=== PATIENT | female | born 1985 | race Caucasian/White ===

== ENCOUNTER → 2018-01-18 | Outpatient (CLI) | payer BC ==
[2018-01-18 12:23] LABS: Basophils % (A) 0 %; Eosinophils # (A) 0.2 k/uL (0-0.7); Eosinophils % (A) 2 %; Lymphocytes # (A) 2.8 k/uL (1.0-4.8); Lymphocytes % (A) 33 %; MCH 28.3 pg (25.0-35.0); MCHC 33.2 g/dL (31.0-37.0); MCV 85.3 fL (80.0-100.0); Mean Platelet Volume 7.5; Monocytes # (A) 0.4 k/uL (0-1.0); Monocytes % (A) 4 %; Neutrophils % (A) 58 %; Platelet Count 261 k/uL (150-450); RBC 4.57 m/uL (3.80-5.40); RDW 13.2 % (11.5-15.5); WBC 8.5 k/uL (3.8-10.6)
== END | disposition home or self-care (01) ==
LOC: LABPAT 11:40
PROVIDERS: ATTEND Obstetrics & Gynecology
DX: Z01.812 Encounter for preprocedural laboratory examination (principal)
CPT/HCPCS: 36415; 85025

== ENCOUNTER → 2018-01-22 | Day surgery (SDC) | payer BC ==
[2018-01-11 15:00] VITALS: BMI 50.3
--- NOTE | 2018-01-21 20:16 | P.HPOB ---
History of Present Illness H&P Date: 01/21/18 Chief Complaint: Menorrhagia with regular cycles This is a 32-year-old female 2 para 2 who presents for dilation and curettage with hysteroscopy and NovaSure endometrial ablation secondary to menorrhagia with regular cycle. She has tried control pills for almost a year and still has heavy menses and significant cramping. Her menses are occurring every 28 days and lasting 5-7 days with lots of clots and cramping. She did have a pelvic ultrasound a couple years ago that showed uterus measuring 9.2 x 3.5 x 4.2 cm with an endometrial stripe thickness of 6 mm. Neither ovary was visualized but no significant masses were visualized. She would like definitive surgical treatment to control her bleeding and she has had a previous tubal ligation. Obstetrical history: . History of 2 deliveries. Gynecologic history: No history of sexual transmitted diseases. She has had a tubal ligation. Social history: She is . Review of Systems Constitutional: Denies chills, Denies fever Eyes: denies blurred vision, denies pain Ears, nose, mouth and throat: Denies headache, Denies sore throat Cardiovascular: Denies chest pain, Denies shortness of breath Respiratory: Denies cough Gastrointestinal: Denies abdominal pain, Denies diarrhea, Denies nausea, Denies vomiting Genitourinary: Reports dysmenorrhea, Reports menorrhagia Menstruation: Reports period heavy Musculoskeletal: Reports low back pain, Reports myalgias Integumentary: Denies pruritus, Denies rash Neurological: Denies numbness, Denies weakness Psychiatric: Reports anxiety, Reports depression, Reports difficulty concentrating Endocrine: Denies fatigue, Denies weight change Past Medical History Past Medical History: No Reported History Additional Past Medical History / Comment(s): experiencing period pain History of Any Multi-Drug Resistant Organisms: None Reported Past Surgical History: Adenoidectomy, Section (Times 2), Cholecystectomy, Tonsillectomy, Tubal Ligation Additional Past Surgical History / Comment(s): wisdom teeth Past Anesthesia/Blood Transfusion Reactions: Postoperative Nausea & Vomiting ( PONV) Past Psychological History: Anxiety, Depression Smoking Status: Former smoker Past Alcohol Use History: Rare Past Drug Use History: None Reported - Past Family History Mother Family Medical History: CVA/TIA, Hyperlipidemia, Hypertension Medications and Allergies Home Medications Medication Instructions Recorded Confirmed Type No Known Home Medications 01/11/18 01/11/18 History Allergies Allergy/AdvReac Type Severity Reaction Status Date / Time No Known Allergies Allergy Verified 01/11/18 14:52 Exam Osteopathic Statement: *. No significant issues noted on an osteopathic structural exam other than those noted in the History and Physical/Consult. HEENT: Within normal limits Heart: Regular rate and rhythm Lungs: Clear to auscultation bilaterally Abdomen: Soft, nontender Pelvic exam: Uterus is small, anteverted, with no adnexal masses or tenderness noted. Extremities: Negative Homans Assessment and Plan (1) Menorrhagia with regular cycle Status: Acute Code(s): N92.0 - EXCESSIVE AND FREQUENT MENSTRUATION WITH REGULAR CYCLE SNOMED Code(s): 349424223 Plan: Proceed with dilation and curettage with hysteroscopy and NovaSure endometrial ablation. I have discussed the risks, benefits, and alternative therapies for the above- mentioned procedure and for both sedation/anesthesia as well as necessary blood products administration, if indicated, as they pertain to this patient. The patient has indicated her understanding and acceptance of the risks and procedures discussed.
[~2018-01-22] MED LIST: ALBUTEROL INHALER 60 PUFF/8 GM INHALER INHALATION ONE; DEXAMETHASONE SOD PHOSPHATE 10 MG/ML 1 ML VIAL IV ONE; KETOROLAC 30 MG/ML 1 ML VIAL ONE; LACTATED RINGERS 1,000 ML IV SCH; LIDOCAINE 1% 20 ML VIAL (10MG/ML) FOR IV START INTRADERMA PRN; LIDOCAINE 1% INJ 10MG/ML (20 ML MDV) ONE; MIDAZOLAM 2 MG/2 ML VIAL IV PRN; ONDANSETRON 4 MG/2 ML VIAL IVP ONE; PROPOFOL 10 MG/ML 20 ML VIAL IV ONE; Pre Op ABX Message 1 EACH MISC MISCELLANE ONE; SUCCINYLCHOLINE CHLORIDE VIAL 200 MG/10 ML VIAL IV ONE; fentaNYL (PF) 50 MCG/ML 2 ML AMP ONE
--- NOTE | 2018-01-22 08:00 | P.OP ---
Date of Procedure: 01/22/18 Preoperative Diagnosis: Menorrhagia with regular cycle Postoperative Diagnosis: Same Procedure(s) Performed: Dilation and curettage with hysteroscopy and NovaSure endometrial ablation Anesthesia: CATRACHITA Surgeon: Winnie Martínez Estimated Blood Loss (ml): 5 Pathology: other (Endometrial curettings) Condition: stable Disposition: same day Indications for Procedure: This is a 32-year-old female 2 para 2 who presents for dilation and curettage with hysteroscopy and NovaSure endometrial ablation secondary to menorrhagia with regular cycle. She has tried control pills for almost a year and still has heavy menses and significant cramping. Her menses are occurring every 28 days and lasting 5-7 days with lots of clots and cramping. She did have a pelvic ultrasound a couple years ago that showed uterus measuring 9.2 x 3.5 x 4.2 cm with an endometrial stripe thickness of 6 mm. Neither ovary was visualized but no significant masses were visualized. She would like definitive surgical treatment to control her bleeding and she has had a previous tubal ligation. Operative Findings: Uterus is mid position, with no adnexal masses palpated. Cervix is sounded to 4 cm and uterus is sounded to 11 cm. Upon hysteroscopy, both tubal ostia are visualized and a relatively smooth endometrial contour is noted. No specific polyps or fibroids were visualized. A minimal amount of endometrial curettings are obtained. Description of Procedure: The patient is taken to the operating room. She is placed in the dorsal lithotomy position after general anesthesia was given. She is prepped and draped in the normal sterile fashion. Bladder is drained with a catheter and then removed. Pelvic exam is performed under anesthesia. Uterus is found to be mid position with no adnexal masses. She is placed in slight Trendelenburg position. A right angle retractor is used to visualize the cervix. The anterior lip of the cervix is grasped with a single-tooth tenaculum. Cervix is sounded to 4 cm. Uterus is sounded to 11 cm. Cervix is gently dilated with Rothman dilators until a hysteroscope could be passed. Hysteroscopy is performed using normal saline. The above noted findings are noted. Next a polyp forceps is introduced. A moderate amount of tissue was obtained. Next medium-sized size sharp curette was placed. A minimal amount of endometrial curettings were obtained. Next NovaSure array was inserted into the endometrial cavity. Length was set at 6.5 cm and width was determined to be 4.1 cm. Next cavity assessment was completed and passed on the first try. Next NovaSure array was fired at 147 W for 56 seconds. Next the array was removed, inspected and then discarded. Next the hysteroscope was reinserted. Uniform charring was noted. Pictures were taken. Hysteroscope was removed. Single-tooth tenaculum was removed from the anterior lip of the cervix. Minimal bleeding was noted. All other instruments removed from the vagina. Sponge counts were correct. Patient is taken to recovery room in stable condition.
[2018-01-22 08:18] VITALS: TEMP 97.4
[2018-01-22 08:19] VITALS: RESP 16
[2018-01-22] MEDS: fentaNYL (PF) 50 MCG/ML 2 ML AMP IV PRN ×2 (08:37→08:45)
[2018-01-22 09:13] VITALS: BP 103/77; PULSE 70
== END | disposition home or self-care (01) ==
LOC: OR 06:06
PROVIDERS: ATTEND Obstetrics & Gynecology
DX: N92.0 Excessive and frequent menstruation with regular cycle (principal); F41.9 Anxiety disorder, unspecified; F32.9 Major depressive disorder, single episode, unspecified; E66.9 Obesity, unspecified; Z68.43 Body mass index [BMI] 50.0-59.9, adult; K21.9 Gastro-esophageal reflux disease without esophagitis; Z90.49 Acquired absence of other specified parts of digestive tract; Z98.51 Tubal ligation status; Z87.891 Personal history of nicotine dependence
CPT/HCPCS: 81025; 58563; J0330; J1100; J2405; J2001; J3010; J1885; J2704; 88305

== ENCOUNTER 2018-01-24 20:11 | Emergency (ER) | payer BC ==
[2018-01-24 20:29] VITALS: BP 145/90; PULSE 78; RESP 18; TEMP 98.5
[2018-01-24] MEDS ORDERED: MUPIROCIN 2% OINT 22 GM TUBE TOPICAL STA (20:52)
--- NOTE | 2018-01-24 21:00 | ED ---
Skin/Abscess/FB HPI - General Chief complaint: Skin/Abscess/Foreign Body Stated complaint: poss staph infection Time Seen by Provider: 01/24/18 20:45 Source: patient, RN notes reviewed Mode of arrival: ambulatory Limitations: no limitations - History of Present Illness Initial comments: This is a 32-year-old female who presents to the emergency department with chief complaint of possible staph infection. Patient states that she had a uterine ablation performed by Dr. Martínez on Sunday. She states that later that evening she developed some pain so applied a heating pad. She states that when she removed a heating pad she noticed a large blister and area of redness. Patient states that the wound has grown in size and is concerned for a staph infection. She denies fevers or chills. Denies history of MRSA. Denies chest pain or shortness of breath, abdominal pain, nausea or vomiting. Patient states that she has had multiple C-sections so has decreased sensation in the area due to built up scar tissue. She denies pain. - Related Data Home Medications Medication Instructions Recorded Confirmed No Known Home Medications 01/11/18 01/22/18 Allergies Allergy/AdvReac Type Severity Reaction Status Date / Time No Known Allergies Allergy Verified 01/24/18 20:29 Review of Systems ROS Statement: Those systems with pertinent positive or pertinent negative responses have been documented in the HPI. ROS Other: All systems not noted in ROS Statement are negative. Past Medical History Additional Past Medical History / Comment(s): experiencing period pain History of Any Multi-Drug Resistant Organisms: None Reported Past Surgical History: Appendectomy, Section, Cholecystectomy, Tonsillectomy, Uterine Ablation Additional Past Surgical History / Comment(s): wisdom teeth Past Anesthesia/Blood Transfusion Reactions: Postoperative Nausea & Vomiting ( PONV) Past Psychological History: Anxiety, Depression Smoking Status: Former smoker Past Alcohol Use History: Rare Past Drug Use History: None Reported - Past Family History Mother Family Medical History: CVA/TIA, Hyperlipidemia, Hypertension General Exam - General Exam Comments Initial Comments: General: Awake and alert, well-developed; in no apparent distress. HEENT: Head atraumatic, normocephalic. Pupils are equal, round and reactive to light. Extraocular movements intact. Oropharynx moist without erythema or exudate. Neck: Supple. Normal ROM. Cardiovascular: Regular rate and rhythm. No murmurs, rubs or gallops. Chest symmetrical. Respiratory: Lungs clear to auscultation bilaterally. No wheezes, rales or rhonchi. Normal respiratory effort with no use of accessory muscles. Abdomen: Soft, non-tender, non-distended. No rigidity, rebound or guarding. Musculoskeletal: Normal ROM, no tenderness bilateral upper and lower extremities. Ambulating normally. Skin: Mid lower abdomen/pannus circular healing burn with no surrounding erythema, swelling or tenderness. No blisters noted. Neurological: Alert and oriented x3. CN II-XII grossly intact. Speech is fluent and answers are appropriate. No focal neuro deficits. Psychiatric: Normal mood and affect. No overt signs of depression or anxiety noted. Limitations: no limitations Course Vital Signs 01/24/18 20:27 Temperature 98.5 F Pulse Rate 78 Respiratory 18 Rate Blood Pressure 145/90 O2 Sat by Pulse 99 Oximetry Medical Decision Making - Medical Decision Making This is a 32-year-old female who presents to the emergency department with chief complaint of possible staph infection. Patient reports using a heating pad to her lower abdomen on Sunday and sustaining a burn. Patient states that a blister did form but that it has since sloughed off. On physical examination , there is a well-healing large circular burn fede to the mid lower abdomen/ pannus region. No tenderness on palpation. No surrounding erythema or swelling. This does not appear infected, however patient will be provided with mupirocin ointment to be applied twice daily if needed. I educated patient that a staph infection will be tender, erythematous and may have a yellow crusting. Recommended following up with her primary care provider, specifically if wound does not appear to be healing. Patient's vital signs are stable and she is in no acute distress. She will be discharged home at this time. All questions were answered. Disposition Clinical Impression: Superficial burn of abdominal wall Disposition: HOME SELF-CARE Condition: Good Instructions: Superficial Burn (ED) Additional Instructions: Please follow up with primary care provider within 1-2 days. Return to emergency department if symptoms should worsen or any concerns arise. Is patient prescribed a controlled substance at d/c from ED?: No Referrals: None,Stated [Primary Care Provider] - 1-2 days Time of Disposition: 20:59
== END 2018-01-24 21:23 | disposition home or self-care (01) ==
LOC: EC 20:11
DX: T21.12XA Burn of first degree of abdominal wall, initial encounter (principal); Z87.891 Personal history of nicotine dependence; Z98.890 Other specified postprocedural states; X19.XXXA Contact with other heat and hot substances, initial encounter
CPT/HCPCS: 16000; 99283

== ENCOUNTER → 2020-07-29 | Outpatient (CLI) | payer OTHER, BC ==
--- NOTE | 2020-07-29 12:21 | US ---
EXAMINATION TYPE: US pelvic complete DATE OF EXAM: 07/29/2020 COMPARISON: US 2016 CLINICAL HISTORY: R10.2 Pelvic pain. Intermittent right pelvic pain and spotting x 6 months, 2, para 2, history of 2 c-sections, tubal ligation, uterine ablation(2018) and right ovarian cyst rem abel(2011) TECHNIQUE: . Transabdominal sonographic images of the pelvis were acquired. Transvaginal sonographi c images were medically necessary to better assess the following anatomy: ovaries, endometrium Date of LMP: 2018 EXAM MEASUREMENTS: Uterus: 10.6 x 4.2 x 4.1 cm Endometrial Stripe: cm Right Ovary: not seen Left Ovary: not seen Difficult and limited study due to morbidly obese patient 1. Uterus: anteverted, heterogeneous, nabothian cyst seen 2. Endometrium: fluid in endocervical canal, 1.3cm anechoic area appears within fundal portion of en do 3. Right Ovary: not seen 4. Left Ovary: not seen 5. Bilateral Adnexa: wnl 6. Posterior cul-de-sac: wnl 12.4 x 9.6 x 12.7cm hypoechoic complex mass midline pelvis superior to bladder and uterus, only see n transabdominally IMPRESSION: Nonspecific mass. CT is recommended for further evaluation.
== END | disposition home or self-care (01) ==
LOC: RADUSWWP 10:23
PROVIDERS: ATTEND Obstetrics & Gynecology
DX: R10.2 Pelvic and perineal pain (principal)
CPT/HCPCS: 76830; 76856

== ENCOUNTER → 2020-08-03 | Outpatient (CLI) | payer OTHER, BC ==
--- NOTE | 2020-08-03 09:41 | CT ---
EXAMINATION TYPE: CT abdomen pelvis w con DATE OF EXAM: 08/03/2020 COMPARISON: 06/28/2011 and ultrasound 07/29/2020 HISTORY: 35-year-old female R10.2, R19.09 Pelvic pain, Pelvic mass TECHNIQUE: Contiguous axial scanning of the abdomen and pelvis following administration of 100 ml Iso naseem 300 IV contrast. Delayed images through the kidneys and coronal/sagittal reconstructions perform ed. CT DLP: 1987 mGycm Automated exposure control for dose reduction was used. FINDINGS: Heart normal size without pericardial effusion. Lung bases clear without pleural effusion. Liver enlarged at 23.1 cm with low attenuation. Spleen mildly enlarged at 14.3 cm. No biliary ductal dilatation. Portal venous system is patent. Cholecystectomy clips are demonstrated. Adrenal glands, kidneys, and pancreas appear within normal limits. Circumaortic left renal vein. No dilated small bowel, free fluid, or free air. No mesenteric or retroperitoneal lymphadenopathy. Mild stool burden. Normal appendix. No pericolonic inflammatory change. Bladder is urine distended. The uterus is anteverted. Right ovary is visualized. Pelvic fluid ligamen ts. There is a large complex cystic mass associated with the left ovary measuring 13.6 cm craniocauda l by 13.6 cm wide by 9.6 cm AP (refer to coronal image 63 and sagittal image 55. This is new as anna marie red to the CT of 2011. Superiorly, a septation is thickened up to 9 mm. Otherwise, the couple additional thin septations are demonstrated. No mural based nodularity is clearly identified. No abnormal fluid collection in the pelvis or pelvic lymphadenopathy. Bones: No osseous destructive process. IMPRESSION: 1. CYSTIC MASS IN THE PELVIS FELT TO ARISE FROM THE LEFT OVARY MEASURING UP TO 13.6 X 13.6 X 9.6 CM. THIS SHOWS MILD COMPLEXITY WITH A COUPLE THIN SEPTATIONS AND A SINGLE MILDLY THICKENED SEPTATION AROLDO URING UP TO 9 MM IN THICKNESS. 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 SURGICAL EVALUATION RECOMMENDED. IF DESIRED, MRI MAY BE USED TO BETTER CHARACTERIZE THE INTERNAL COMPLEXITY PRIOR TO SURGERY. 2. HEPATOSPLENOMEGALY (LIVER 23.1 CM AND SPLEEN 14.3 CM). THERE IS UNDERLYING HEPATIC STEATOSIS.
== END ==
LOC: RADCTMAIN 07:35
PROVIDERS: ATTEND Obstetrics & Gynecology
DX: N83.8 Other noninflammatory disorders of ovary, fallopian tube and broad ligament (principal); R16.2 Hepatomegaly with splenomegaly, not elsewhere classified
CPT/HCPCS: 74177; Q9967

== ENCOUNTER → 2021-02-18 | Outpatient (CLI) | payer OTHER, BC ==
--- NOTE | 2021-02-20 19:12 | US ---
EXAMINATION TYPE: US pelvis complete transvag DATE OF EXAM: 02/18/2021 COMPARISON: 07/29/2020 CLINICAL HISTORY: 35-year-old female R10.2 pelvic pain, N93.8 uterine bleeding. Left ovary and fallop mohamud tube removed. Hx ablation in july. . TECHNIQUE: Transvaginal (TV) and Transabdominal (TA) . Transabdominal sonographic images of the pel vis were acquired. 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 Uterus: Anteverted. The degree of detailed visualization due to the degree of sound beam penetra tion. 2. Endometrium: limited visualization, it appears to be thickened especially towards the uterine fun dus. 3. Right Ovary: Obscured by overlying bowel gas 4. Left Ovary: Surgically absent 5. Bilateral Adnexa: wnl 6. Posterior cul-de-sac: no free fluid Cervix- complicated, probably hemorrhagic fluid seen in cervical canal IMPRESSION: 1. Apparent thickening of the endometrial stripe measuring up to 1.3 cm. Further clinical correlation recommended given the patient's history of previous endometrial ablation. 2. Some fluid, possibly hemorrhagic fluid within the endocervical canal. 3. Left ovary surgically absent. 4. Unable to visualize the right ovary.
== END | disposition home or self-care (01) ==
LOC: RADUSWWP 15:41
PROVIDERS: ATTEND Obstetrics & Gynecology
DX: R93.89 Abnormal findings on diagnostic imaging of other specified body structures (principal); Z90.721 Acquired absence of ovaries, unilateral
CPT/HCPCS: 76830; 76856

== ENCOUNTER → 2021-06-20 | Outpatient (CLI) | payer OTHER, BC ==
[2021-06-20 10:39] LABS: Basophils % (A) 0 %; Eosinophils # (A) 0.2 k/uL (0-0.7); Eosinophils % (A) 2 %; HCT 42.2 % (34.0-46.0); HGB 13.9 gm/dL (11.4-16.0); Lymphocytes # (A) 2.3 k/uL (1.0-4.8); Lymphocytes % (A) 27 %; MCH 29.7 pg (25.0-35.0); MCV 90.1 fL (80.0-100.0); Monocytes # (A) 0.6 k/uL (0-1.0); Monocytes % (A) 7 %; Neutrophils # (A) 5.5 k/uL (1.3-7.7); Neutrophils % (A) 63 %; Platelet Count 261 k/uL (150-450); RBC 4.68 m/uL (3.80-5.40); RDW 12.5 % (11.5-15.5); WBC 8.8 k/uL (3.8-10.6)
[2021-06-20 10:55] LABS: African American GFR (CKD) >90 (>60 ml/min/1.73 sqM); Anion Gap 7 mmol/L; Blood Urea Nitrogen 16 mg/dL (7-17); Calcium 9.5 mg/dL (8.4-10.2); Carbon Dioxide 26 mmol/L (22-30); Chloride 104 mmol/L (98-107); Glucose 88 mg/dL (74-99); Non-African American GFR(CKD) >90 (>60 ml/min/1.73 sqM); Potassium 4.2 mmol/L (3.5-5.1); Sodium 137 mmol/L (137-145)
== END | disposition home or self-care (01) ==
LOC: LABPAT 09:32
PROVIDERS: ATTEND Obstetrics & Gynecology
DX: Z01.812 Encounter for preprocedural laboratory examination (principal)
CPT/HCPCS: 80048; 85025

== ENCOUNTER → 2021-10-18 | Outpatient (CLI) | payer OTHER, BC ==
--- NOTE | 2021-10-18 16:28 | US ---
EXAMINATION TYPE: US pelvis complete transvag DATE OF EXAM: 10/18/2021 COMPARISON: NONE CLINICAL HISTORY: 36-year-old female R10.2 PELVIC PAIN, N93.9 ABN VAGINAL BLEEDING. Previous partial hysterectomy 06/27/2021; has rt ovary. TECHNIQUE: Transvaginal (TV) and Transabdominal (TA) . FINDINGS: EXAM MEASUREMENTS: Uterus: Surgically absent Right Ovary: 4.4 x 3.7 x 3.9 cm Left Ovary: Surgically absent 1. Uterus: Surgically absent 2. Endometrium: Surgically absent 3. Right Ovary: Septated cyst visualized 3.3 x 3.8 x 3.1 cm. . Asymmetric reticulation and marrow ba se nodularity measuring up to 2.5 x 1.0 cm. Some associated vascularity may be present at the site of nodularity. 4. Left Ovary: Surgically absent 5. Bilateral Adnexa: wnl 6. Posterior cul-de-sac: wnl IMPRESSION: 1. Status post hysterectomy and left nephrectomy. 2. There is a complex cyst measuring 3.8 cm of the right ovary. Internal reticulations raises the pos sibility of a hemorrhagic cyst. However, an area of 2.5 x 1.0 cm mural based nodularity seems to show vascularity. Cystic epithelial ovarian neoplasm not excluded. Initial follow-up recommended at 6-8 w eeks to assess for potential involution.
== END | disposition home or self-care (01) ==
LOC: RADUSWWP 07:40
PROVIDERS: ATTEND Obstetrics & Gynecology
DX: N83.291 Other ovarian cyst, right side (principal); Z90.5 Acquired absence of kidney; Z90.710 Acquired absence of both cervix and uterus; Z90.721 Acquired absence of ovaries, unilateral
CPT/HCPCS: 76830; 76856

== ENCOUNTER → 2021-12-02 | Outpatient (CLI) | payer OTHER, BC ==
--- NOTE | 2021-12-02 12:45 | US ---
EXAMINATION TYPE: US pelvis complete transvag DATE OF EXAM: 12/02/2021 COMPARISON: CLINICAL HISTORY: N83.299 OVARIAN CYST, R10.2 PELVIC PAIN. Partial hysterectomy, still has right ovar y. Follow up ovarian cyst. TECHNIQUE: Transvaginal (TV) and Transabdominal (TA) . Transabdominal sonographic images of the pel vis were acquired. Transvaginal sonographic images were medically necessary to better assess the fol lowing anatomy: Ovaries Date of LMP: Unknown EXAM MEASUREMENTS: Right Ovary: 3.8 x 2.5 x 2.4 cm 1. Uterus: Surgically absent 2. Endometrium: Surgically absent 3. Right Ovary: 2.0 cm simple appearing ovarian cyst 4. Left Ovary: Surgically absent 5. Bilateral Adnexa: wnl 6. Posterior cul-de-sac: no free fluid Bladder is sonolucent. Posterior wall is normal. IMPRESSION: Small right ovarian cyst
== END | disposition home or self-care (01) ==
LOC: RADUSWWP 11:02
PROVIDERS: ATTEND Obstetrics & Gynecology
DX: N83.201 Unspecified ovarian cyst, right side (principal)
CPT/HCPCS: 76830; 76856

== ENCOUNTER → 2023-03-21 | Outpatient (CLI) | payer BC ==
[2023-03-21 16:37] VITALS: BP 142/87; PULSE 78; TEMP 97.5; BMI 56.0
--- NOTE | 2023-03-21 17:21 | P.HPBAR ---
Bariatric H&P - History & Physicial H&P Date: 03/21/23 History & Physicial: Visit/CC: new patient Patient initial contact: Initial weight: Initial weight in pounds: Height: 5 ft 6 in Initial BMI: Last weight: Current weight: 157.397 kg Current weight in pounds: 347.00 Current BMI: 56.0 [place] body weight (based on NIH guidelines): 58.967 kg Excess body weight loss: The patient is a 37 year-old F who presents for Bariatric Assessment. Highest weigh is present. Wants to get sleeve. All family with morbid obesity. Get EGD. NO gallbladder. Needs 3 months of weight loss. She has back pain. Has hip pain. Has knees and ankles. No sleep apnea. Patient tried low caloric diet. No prior medications for weight loss. Has fatty food intolerance. Recommend upper endoscopy for further assessment. Past Medical History Past Medical History: No Reported History Additional Past Medical History / Comment(s): PELVIC PAIN AND BACK PAIN History of Any Multi-Drug Resistant Organisms: None Reported Past Surgical History: Section, Cholecystectomy, Hysterectomy, Tonsillectomy, Uterine Ablation Additional Past Surgical History / Comment(s): wisdom teeth extraction, laparoscopic exam- left ovary removed, and fallopian tube removed , D&C , C SECTION X3, cyst removed off right ovary Past Anesthesia/Blood Transfusion Reactions: Postoperative Nausea & Vomiting (PONV) Additional Past Anesthesia/Blood Transfusion Reaction / Comm: PONV after first , hard to wake up after left ovary removed Past Psychological History: Anxiety, Depression Smoking Status: Former smoker Past Alcohol Use History: Rare Additional Past Alcohol Use History / Comment(s): STARTED SMOKING AT AGE 19 QUIT SMOKING AUGUST 2017 QUIT ON AND OFF PRIOR smoked 1 PACK A WEEK Past Drug Use History: None Reported - Past Family History Mother Family Medical History: CVA/TIA, Hyperlipidemia, Hypertension Surgical - Exam Vital Signs Temp Pulse BP 97.5 F L 78 142/87 03/21/23 16:14 03/21/23 16:14 03/21/23 16:14 Bariatric Checklist Checklist: Plan: Checklist: EGD: 1. Hiatal hernia: 2. H. Pylori: HgbA1c: Vitamin D: Smoking: Former smoker Primary care physician referral: [facility] clearance: Cardiology clearance: Sleep study: Diet journal: VTE risk score: VTE risk level: Rehab needs at discharge:
== END ==
LOC: BARWHC3 15:45
PROVIDERS: ATTEND Surgery Plastic and Reconstructive Surgery
DX: Z53.9 Procedure and treatment not carried out, unspecified reason (principal)
CPT/HCPCS: 99212

== ENCOUNTER → 2023-03-26 | Outpatient (CLI) | payer BC ==
[2023-03-26 09:17] LABS: INR 0.9 (<1.2); Partial Thromboplastin Time 24.8 sec (22.0-30.0)
[2023-03-26 11:03] LABS: HCT 42.9 % (37.2-46.3); HGB 14.1 d/dL (12.0-15.0); MCH 29.1 pg (27.0-32.0); MCHC 32.9 d/dL (32.0-37.0); MCV 88.5 FL (80.0-97.0); Mean Platelet Volume 10.9 FL (9.5-12.2); NRBC Per 100 WBC 0 X 10*3/uL (0.00-0.01); Platelet Count 268 X 10*3/uL (140-440); RBC 4.85 X 10*6/uL (4.10-5.20); RDW 12.3 % (11.5-14.5)
[2023-03-26 11:38] LABS: % Iron Saturation 19.41 (12.00-45.00); ALT 23 U/L (8-44); AST 21 U/L (13-35); Albumin 4.1 d/dL (3.8-4.9); Albumin/Globulin Ratio 1.41 Ratio (1.60-3.17); Alkaline Phosphatase 81 U/L (41-126); BUN/Creat Ratio 15.22 Ratio (12.00-20.00); Blood Urea Nitrogen 13.7 mg/dL (9.0-27.0); Calcium 10.7 mg/dL (8.7-10.3); Carbon Dioxide 24.7 mmol/L (21.6-31.8); Chloride 102 mmol/L (96-109); Chol/HDL Ratio 3.63 Ratio; Globulin 2.9 d/dL (1.6-3.3); Glucose 90 mg/dL (70-110); Iron 66 UG/DL (50-170); LDL Cholesterol,Calculated 97.5 mg/dL (0.0-131.0); Phosphorus 3.9 mg/dL (2.4-5.1); Potassium 4.4 mmol/L (3.5-5.5); Sodium 141 mmol/L (135-145); Total Bilirubin 0.3 mg/dL (0.3-1.2); Total Iron Binding Capacity 340 UG/DL (228-460); VLDL Calculation 13.36 mg/dL (5.00-40.00)
[2023-03-26 11:44] LABS: Prealbumin 22.5 mg/dL (18.0-42.0)
[2023-03-27 08:02] LABS: Zinc, Serum 74 ug/dL (60-130)
[2023-03-28 06:35] LABS: Vitamin A 45 ug/dL (38-106)
== END | disposition home or self-care (01) ==
LOC: LABWHC1 07:52
PROVIDERS: ATTEND Surgery Plastic and Reconstructive Surgery
DX: E89.1 Postprocedural hypoinsulinemia (principal); D50.8 Other iron deficiency anemias; K91.2 Postsurgical malabsorption, not elsewhere classified; E44.0 Moderate protein-calorie malnutrition; E44.1 Mild protein-calorie malnutrition; K74.1 Hepatic sclerosis; N19 Unspecified kidney failure; T56.894A Toxic effect of other metals, undetermined, initial encounter
CPT/HCPCS: 36415; 80053; 80061; 80307; 80323; 82306; 82525; 82607; 82728; 82746; 83036; 83540; 83550; 83735; 83970; 84100; 84134; 84255; 84425; 84443; 84590; 84630; 85027; 85610; 85730; 93005

== ENCOUNTER 2023-04-23 06:43 | Day surgery (SDC) | payer BC ==
[2023-04-18 16:02] VITALS: BMI 56.1
--- NOTE | 2023-04-23 05:14 | P.GSHP ---
History of Present Illness H&P Date: 04/23/23 CHIEF COMPLAINT: GERD HISTORY OF PRESENT ILLNESS: The patient is a 37-year-old female who presents reports gastroesophageal reflux disease. Upper endoscopy was offered for further evaluation and management. PAST MEDICAL HISTORY: Please see list. PAST SURGICAL HISTORY: Please see list. MEDICATIONS: Please see list. ALLERGIES: Please see list. SOCIAL HISTORY: No illicit drug use FAMILY HISTORY: No reports of Crohn disease or ulcerative colitis. REVIEW OF ORGAN SYSTEMS: CONSTITUTIONAL: No reports of fevers or chills. GI: Denies any blood in stools or constipation. PHYSICAL EXAM: VITAL SIGNS: Stable GENERAL: Well-developed and pleasant in no acute distress. HEENT: No scleral icterus. Extraocular movements grossly intact. Moist buccal mucosa. NECK: Supple without lymphadenopathy. CHEST: Unlabored respirations. Equal bilateral excursions. CARDIOVASCULAR: Regular rate and rhythm. Distal 2+ pulses. ABDOMEN: Soft, nondistended. MUSCULOSKELETAL: No clubbing, cyanosis, or edema. ASSESSMENT: 1. Gastroesophageal reflux disease PLAN: 1. Recommend proceeding with an upper endoscopy Past Medical History Past Medical History: No Reported History Additional Past Medical History / Comment(s): PELVIC PAIN AND BACK PAIN History of Any Multi-Drug Resistant Organisms: None Reported Past Surgical History: Section, Cholecystectomy, Hysterectomy, Tonsillectomy, Uterine Ablation Additional Past Surgical History / Comment(s): wisdom teeth extraction, laparoscopic exam- left ovary removed, and fallopian tube removed , D&C , C SECTION X3, cyst removed off right ovary Past Anesthesia/Blood Transfusion Reactions: Postoperative Nausea & Vomiting (PONV) Additional Past Anesthesia/Blood Transfusion Reaction / Comment(s): PONV after first , hard to wake up after left ovary removed Smoking Status: Former smoker - Past Family History Mother Family Medical History: CVA/TIA, Hyperlipidemia, Hypertension Medications and Allergies Home Medications Medication Instructions Recorded Confirmed Type No Known Home Medications 03/21/23 04/18/23 History Allergies Allergy/AdvReac Type Severity Reaction Status Date / Time No Known Allergies Allergy Verified 04/18/23 15:45
[2023-04-23] MEDS ORDERED: LACTATED RINGERS 1,000 ML IV ONE (07:13)
[2023-04-23] MEDS ORDERED: LACTATED RINGERS 1,000 ML IV SCH (07:15)
[2023-04-23 07:26] VITALS: TEMP 97.2
[2023-04-23] MEDS ORDERED: PROPOFOL 10 MG/ML 20 ML VIAL IV ONE (07:35)
[2023-04-23] MEDS ORDERED: MIDAZOLAM 2 MG/2 ML VIAL ONE (07:35)
[2023-04-23] MEDS ORDERED: fentaNYL (PF) 50 MCG/ML 2 ML AMP ONE (07:35)
[2023-04-23] MEDS ORDERED: LIDOCAINE 1% INJ 10MG/ML (20 ML MDV) ONE (07:35)
[2023-04-23] MEDS ORDERED: KETAMINE HCL IN 0.9 % NACL 50 MG/5 ML SYRINGE ONE (07:35)
--- NOTE | 2023-04-23 07:52 | P.PCN ---
Date of Procedure: 04/23/23 Description of Procedure: PREOPERATIVE DIAGNOSIS: Gastroesophageal reflux disease. Morbid obesity. POSTOPERATIVE DIAGNOSIS: Gastroesophageal reflux disease. Morbid obesity BMI 57.5, Gastritis. Duodenitis OPERATION: Esophagogastroduodenoscopy with biopsies along antrum and duodenum SURGEON: Angie Hogue MD ANESTHESIA: MAC. INDICATIONS: The patient is a 37-year-old female who presents with reflux disease. Benefits and risks of the procedure were described. Informed consent was obtained. DESCRIPTION: The patient was brought into the endoscopy suite and laid in the left lateral decubitus position. An Olympus gastroscope was passed along the posterior oropharynx down to the distal esophagus where the squamocolumnar junction was encountered at 38 cm from the incisors. The stomach was entered and no bile reflux was found. Additional findings are listed below. Biopsies with cold forceps were obtained of the antrum. The first through third portion of the duodenum was examined. Retroflexion of the scope confirmed Hill grade 2 lower esophageal valve. The squamocolumnar junction demonstrated LA grade B erosive esophagitis. The stomach was desufflated. The patient tolerated the procedure well. FINDINGS: Squamocolumnar junction 38 cm from the incisors. Diaphragmatic hiatus at 38 cm. Hill grade 2 lower esophageal valve. LA grade B erosive esophagitis with biopsies obtained Biopsies obtained of the duodenum with duodenitis Chronic gastritis with biopsies obtained. RECOMMENDATIONS: Upper endoscopy as needed. Plan - Discharge Summary Discharge Rx Participant: No New Discharge Prescriptions: No Action No Known Home Medications Discharge Medication List No Known Home Medications 03/21/23 [History] [place] [facility] [place] Patient Instructions/Handouts: Gastritis (DC), Weight Management (DC) Discharge Disposition: HOME SELF-CARE
[2023-04-23 08:24] VITALS: BP 123/75; PULSE 75; RESP 16
== END 2023-04-23 08:40 | disposition home or self-care (01) ==
LOC: ORWHC2ENDO 06:43
PROVIDERS: ATTEND Surgery Plastic and Reconstructive Surgery
DX: K29.50 Unspecified chronic gastritis without bleeding (principal); K21.00 Gastro-esophageal reflux disease with esophagitis, without bleeding; K29.80 Duodenitis without bleeding; E66.01 Morbid (severe) obesity due to excess calories; Z68.43 Body mass index [BMI] 50.0-59.9, adult; Z90.49 Acquired absence of other specified parts of digestive tract; Z90.79 Acquired absence of other genital organ(s); Z90.721 Acquired absence of ovaries, unilateral; Z87.891 Personal history of nicotine dependence; Z82.3 Family history of stroke; Z83.49 Family history of other endocrine, nutritional and metabolic diseases; Z82.49 Family history of ischemic heart disease and other diseases of the circulatory system
CPT/HCPCS: 88305; 43239; J2250; J2001; J3010; J2704

== ENCOUNTER → 2023-05-07 | Outpatient (CLI) | payer BC ==
[2023-05-07 14:47] VITALS: BMI 57.9
== END ==
LOC: BARWHC3 12:49
PROVIDERS: ATTEND Surgery Plastic and Reconstructive Surgery
DX: E66.01 Morbid (severe) obesity due to excess calories (principal); Z68.43 Body mass index [BMI] 50.0-59.9, adult; Z71.3 Dietary counseling and surveillance; Z87.891 Personal history of nicotine dependence
CPT/HCPCS: 97804; 99211

== ENCOUNTER → 2023-05-09 | Outpatient (CLI) | payer BC ==
[2023-05-09 15:06] VITALS: BP 121/83; PULSE 80; TEMP 97.7; BMI 56.3
--- NOTE | 2023-05-09 15:15 | P.BASOAP ---
Subjective Progress Note Date: 05/09/23 DATE OF SERVICE: 05/09/23 CHIEF COMPLAINT: Morbid obesity HISTORY OF PRESENT ILLNESS: Shima Gentile is a 37-year-old female who comes with lifelong morbid obesity. She comes in looking into the sleeve gastrectomy. Her gallbladder is out. As a result of her morbid obesity, she has developed osteoarthritis of the lower back and knees. She has completed medical risk assessment, dietary surveillance and counseling, psychological risk assessment, medical supervised weight loss and bariatric risk assessment. She presents for surgical options. At height of 5 feet 6 inches, her ideal body weight is 154 pounds. She comes in 349 pounds. Her highest weight is 358 pounds. Greatest body mass index 57.9. Her body mass index is 56.3. She is 195 pounds overweight. PAST MEDICAL HISTORY: 1. Morbid obesity due to excess calories 2. Body mass index of 57.9 3. Osteoarthritis of the knees. 4. Osteoarthritis of the lower back. 5. Generalized anxiety disorder 6. Depressive disorder PAST SURGICAL HISTORY: 1. section 2. Cholecystectomy 3. Hysterectomy 4. Tonsillectomy 5. Uterine ablation 6. Salpingo-oophorectomy 7. Dilatation and curettage 8. [place] tooth extraction HOME MEDICATIONS: Previous Rx's Medication Instructions Recorded Ergocalciferol [Vitamin D2 (1250 1,250 mcg PO WEEKLY #20 cap 05/09/23 Mcg = 33221 Iu)] ALLERGIES: Allergies Allergy/AdvReac Type Severity Reaction Status Date / Time No Known Allergies Allergy Verified 04/23/23 07:16 SOCIAL HISTORY: Past tobacco use. FAMILY HISTORY: No family history of ulcerative colitis disease or Crohn's disease. Family history of morbid obesity. No lupus in the family. No reports of stomach or esophageal cancer. REVIEW OF ORGAN SYSTEMS: CONSTITUTIONAL: At height of 5 feet 6 inches, her ideal body weight is 154 pounds. She comes in 349 pounds. Her body mass index is 56.3. She is 195 pounds overweight. HEENT: Denies any active troubles with vision or hearing. ENDOCRINE: Denies diabetes. No hypothyroidism. CARDIOVASCULAR: Denies past reports of palpitations or heart attacks or chest pain. Denies hypertensive heart disease. RESPIRATORY: Has daytime somnolence. GASTROINTESTINAL: Denies any bright red blood per rectum. No diarrhea. No constipation. GENITOURINARY: Denies bladder urgency. No recent blood in urine MUSCULOSKELETAL: Has lower back pain and joint pain. Has osteoarthritis of the knees. History of bilateral lower extremity edema. NEURO: No headaches. No seizure disorders. Has neuropathy. PSYCH: Has depression. No suicidal ideation. RHEUMATOLOGIC: No lupus. No rheumatoid arthritis. HEMATOLOGIC: Denies any abnormal bleeding or bruising. SKIN: No rash. No skin cancer. PHYSICAL EXAM: VITAL SIGNS: Height 5 foot 6 inches, weight 349 pounds. BMI 56.3 Vital Signs Temp 97.7 F 05/09/23 14:54 Pulse 80 05/09/23 14:54 Resp BP 121/83 05/09/23 14:54 Pulse Ox FiO2 Intake & Output 05/09/23 05/09/23 05/10/23 06:59 18:59 06:59 Weight 158.304 kg GENERAL: Well-developed in no acute distress. HEENT: No scleral icterus. Extraocular movements grossly intact. Hears conversational speech. No nasal drainage. NECK: Supple without lymphadenopathy. CHEST: Nonlabored respirations with equal bilateral excursions. CARDIOVASCULAR: Regular rate and regular rhythm. Distal 2+ pulses. ABDOMEN: Obese, soft, nontender, nondistended. MUSCULOSKELETAL: No clubbing, cyanosis. NEURO: No focal or lateralizing signs. Cranial nerves 2 through 12 grossly within normal limits. PSYCH: Appropriate affect. Alert and oriented to person, place and time. SKIN: Good skin turgor. Well perfused. LABS: Reviewed in March 2023. Calcium elevated at 10.3, vitamin D 24.6, deficiency. Hemoglobin A1c 5.2. REPORTS: Dietary journal reviewed. EKG: Normal sinus rhythm EGD FINDINGS: Squamocolumnar junction 38 cm from the incisors. Diaphragmatic hiatus at 38 cm. Hill grade 2 lower esophageal valve. LA grade B erosive esophagitis with biopsies obtained Biopsies obtained of the duodenum with duodenitis Chronic gastritis with biopsies obtained. Final Pathologic Diagnosis A. DUODENUM, BIOPSY: Benign small bowel mucosa with intact villous architecture, negative for histopathologic abnormality. B. GASTRIC ANTRUM, BIOPSY: Mild chronic gastritis. Helicobacter pylori organisms are not identified on routine H+E sections. C. ESOPHAGUS, BIOPSY: Mild chronic esophagitis. Intramucosal eosinophils are not identified. ASSESSMENT: 1. Morbid obesity due to excess calories 2. Body mass index of 56.3 3. Osteoarthritis of the knees. 4. Osteoarthritis of the lower back. 5. Generalized anxiety disorder 6. Depressive disorder 7. Vitamin D deficiency PLAN: 1. Bariatric options between a sleeve, band and a Angie-en-Y gastric bypass were reviewed in detail. The patient elected for a sleeve gastrectomy. Robotic assisted approach described. 2. The [place] [facility] Data was also reviewed with benefits and risks as described. 3. An 8 page second-generation bariatric consent form was reviewed in detail including potential of bleeding, infection, leaks, adequate weight loss, nutritional deficiencies which the patient demonstrated understanding of the risks. 4. A 2 week high-protein low caloric 800 kcal diet described to address hepatomegaly. 5. Preoperative labs including complete metabolic panel and CBC with type and screen recommended. 6. DVT prophylaxis per [place] [facility]. 7. Antibiotic prophylaxis. 8. Inpatient hospitalization anticipated for more than 2 nights. 9. All questions and concerns were addressed with the patient. 10. The patient is at elevated risk for perioperative complications with body mass index over 50 11. Overall, patient has expressed understanding of bariatric care including postoperative diet and commitment of lifestyle. Patient should benefit from surgical intervention for correction of morbid obesity. 12. She has vitamin D deficiency and prescription written and sent. Objective - Vital Signs Vital signs: Vital Signs Temp 97.7 F 05/09/23 14:54 Pulse 80 05/09/23 14:54 Resp BP 121/83 05/09/23 14:54 Pulse Ox FiO2 Intake & Output 05/08/23 05/09/23 05/09/23 18:59 06:59 18:59 Weight 158.304 kg Assessment/Plan Plan: Date: 05/09/23 Initial Weight: Initial BMI: Current Weight: 158.304 kg Current BMI: 56.3 Type of Surgery: Total Volume in Band: Previous Volume: Volume Removed: Volume Added: Band Size:
== END ==
LOC: BARWHC3 14:03
PROVIDERS: ATTEND Surgery Plastic and Reconstructive Surgery
DX: Z71.3 Dietary counseling and surveillance (principal); E66.01 Morbid (severe) obesity due to excess calories; M17.0 Bilateral primary osteoarthritis of knee; M47.816 Spondylosis without myelopathy or radiculopathy, lumbar region; E83.32 Hereditary vitamin D-dependent rickets (type 1) (type 2); F41.9 Anxiety disorder, unspecified; F32.A Depression, unspecified; Z90.49 Acquired absence of other specified parts of digestive tract; Z90.710 Acquired absence of both cervix and uterus; Z90.89 Acquired absence of other organs; Z98.890 Other specified postprocedural states; Z87.891 Personal history of nicotine dependence; Z68.43 Body mass index [BMI] 50.0-59.9, adult
CPT/HCPCS: 99211

== ENCOUNTER → 2023-07-04 | Outpatient (CLI) | payer BC ==
[2023-07-04 16:05] LABS: Basophils # (A) 0.05 X 10*3/uL (0.00-0.10); Basophils % (A) 0.6 %; Eosinophils # (A) 0.18 X 10*3/uL (0.04-0.35); Eosinophils % (A) 2.3 %; HCT 42.4 % (37.2-46.3); HGB 13.7 g/dL (12.0-15.0); Lymphocytes # (A) 2.79 X 10*3/uL (0.90-5.00); Lymphocytes % (A) 34.9 %; MCH 29.3 pg (27.0-32.0); MCHC 32.3 g/dL (32.0-37.0); MCV 90.6 FL (80.0-97.0); Mean Platelet Volume 12.5 FL (9.5-12.2); Monocytes # (A) 0.64 X 10*3/uL (0.20-1.00); NRBC Per 100 WBC 0 X 10*3/uL (0.00-0.01); Neutrophils # (A) 4.31 X 10*3/uL (1.80-7.70); Neutrophils % (A) 53.8 %; Platelet Count 257 X 10*3/uL (140-440); RBC 4.68 X 10*6/uL (4.10-5.20); RDW 12.9 % (11.5-14.5)
[2023-07-04 16:26] LABS: ALT 31 U/L (8-44); AST 30 U/L (13-35); Albumin 4.1 g/dL (3.8-4.9); Albumin/Globulin Ratio 1.41 Ratio (1.60-3.17); Alkaline Phosphatase 57 U/L (41-126); BUN/Creat Ratio 19.62 Ratio (12.00-20.00); Blood Urea Nitrogen 15.7 mg/dL (9.0-27.0); Calcium 9.3 mg/dL (8.7-10.3); Carbon Dioxide 22.3 mmol/L (21.6-31.8); Chloride 104 mmol/L (96-109); Globulin 2.9 g/dL (1.6-3.3); Glucose 84 mg/dL (70-110); Potassium 4.6 mmol/L (3.5-5.5); Sodium 138 mmol/L (135-145); Total Bilirubin 0.3 mg/dL (0.3-1.2)
== END | disposition home or self-care (01) ==
LOC: LABPAT 07:54
PROVIDERS: ATTEND Surgery Plastic and Reconstructive Surgery
DX: Z01.812 Encounter for preprocedural laboratory examination (principal)
CPT/HCPCS: 36415; 80053; 85025; 86850; 86900; 86901

== ENCOUNTER 2023-07-09 09:52 | Day surgery (SDC) | payer BC ==
[2023-07-02 11:32] VITALS: BMI 55.8
--- NOTE | 2023-07-09 06:12 | P.GSHP ---
History of Present Illness H&P Date: 07/09/23 CHIEF COMPLAINT: Morbid obesity HISTORY OF PRESENT ILLNESS: Shima Gentile is a 38-year-old female who comes with lifelong morbid obesity. She comes in looking into the sleeve gastrectomy. Her gallbladder is out. As a result of her morbid obesity, she has developed osteoarthritis of the lower back and knees. She has completed medical risk assessment, dietary surveillance and counseling, psychological risk assessment, medical supervised weight loss and bariatric risk assessment. She presents for surgical options. At height of 5 feet 6 inches, her ideal body weight is 154 pounds. She comes in 346 pounds. Her highest weight is 358 pounds. Greatest body mass index 57.9. Her body mass index is 55.8. She is 192 pounds overweight. PAST MEDICAL HISTORY: 1. Morbid obesity due to excess calories 2. Body mass index of 57.9 3. Osteoarthritis of the knees. 4. Osteoarthritis of the lower back. 5. Generalized anxiety disorder 6. Depressive disorder PAST SURGICAL HISTORY: 1. section 2. Cholecystectomy 3. Hysterectomy 4. Tonsillectomy 5. Uterine ablation 6. Salpingo-oophorectomy 7. Dilatation and curettage 8. [place] tooth extraction HOME MEDICATIONS: Previous Rx's Medication Instructions Recorded Ergocalciferol [Vitamin D2 (1250 1,250 mcg PO WEEKLY #20 cap 05/09/23 Mcg = 15035 Iu)] ALLERGIES: Allergies Allergy/AdvReac Type Severity Reaction Status Date / Time No Known Allergies Allergy Verified 04/23/23 07:16 SOCIAL HISTORY: Past tobacco use. FAMILY HISTORY: No family history of ulcerative colitis disease or Crohn's disease. Family history of morbid obesity. No lupus in the family. No reports of stomach or esophageal cancer. REVIEW OF ORGAN SYSTEMS: CONSTITUTIONAL: At height of 5 feet 6 inches, her ideal body weight is 154 pounds. She comes in 349 pounds. Her body mass index is 56.3. She is 195 pounds overweight. HEENT: Denies any active troubles with vision or hearing. ENDOCRINE: Denies diabetes. No hypothyroidism. CARDIOVASCULAR: Denies past reports of palpitations or heart attacks or chest pain. Denies hypertensive heart disease. RESPIRATORY: Has daytime somnolence. GASTROINTESTINAL: Denies any bright red blood per rectum. No diarrhea. No constipation. GENITOURINARY: Denies bladder urgency. No recent blood in urine MUSCULOSKELETAL: Has lower back pain and joint pain. Has osteoarthritis of the knees. History of bilateral lower extremity edema. NEURO: No headaches. No seizure disorders. Has neuropathy. PSYCH: Has depression. No suicidal ideation. RHEUMATOLOGIC: No lupus. No rheumatoid arthritis. HEMATOLOGIC: Denies any abnormal bleeding or bruising. SKIN: No rash. No skin cancer. PHYSICAL EXAM: VITAL SIGNS: Height 5 foot 6 inches, weight 346 pounds. BMI 55.8 GENERAL: Well-developed in no acute distress. HEENT: No scleral icterus. Extraocular movements grossly intact. Hears conversational speech. No nasal drainage. NECK: Supple without lymphadenopathy. CHEST: Nonlabored respirations with equal bilateral excursions. CARDIOVASCULAR: Regular rate and regular rhythm. Distal 2+ pulses. ABDOMEN: Obese, soft, nontender, nondistended. MUSCULOSKELETAL: No clubbing, cyanosis. NEURO: No focal or lateralizing signs. Cranial nerves 2 through 12 grossly within normal limits. PSYCH: Appropriate affect. Alert and oriented to person, place and time. SKIN: Good skin turgor. Well perfused. LABS: Reviewed. WBC within normal limits. Hemoglobin normal limits. EKG: Normal sinus rhythm EGD FINDINGS: Squamocolumnar junction 38 cm from the incisors. Diaphragmatic hiatus at 38 cm. Hill grade 2 lower esophageal valve. LA grade B erosive esophagitis with biopsies obtained Biopsies obtained of the duodenum with duodenitis Chronic gastritis with biopsies obtained. ASSESSMENT: 1. Morbid obesity due to excess calories 2. Body mass index of 56.3 3. Osteoarthritis of the knees. 4. Osteoarthritis of the lower back. 5. Generalized anxiety disorder 6. Depressive disorder 7. Vitamin D deficiency PLAN: 1. Bariatric options between a sleeve, band and a Angie-en-Y gastric bypass were reviewed in detail. The patient elected for a sleeve gastrectomy. Robotic assisted approach described. 2. The [place] [facility] Data was also reviewed with benefits and risks as described. 3. An 8 page second-generation bariatric consent form was reviewed in detail including potential of bleeding, infection, leaks, adequate weight loss, nutritional deficiencies which the patient demonstrated understanding of the risks. 4. A 2 week high-protein low caloric 800 kcal diet described to address h epatomegaly. Anticipated weight loss over 10 pounds described. 5. Preoperative labs including complete metabolic panel and CBC with type and screen recommended. 6. DVT prophylaxis per [place] [facility]. 7. Antibiotic prophylaxis. 8. Inpatient hospitalization anticipated for more than 2 nights. 9. All questions and concerns were addressed with the patient. 10. The patient is at elevated risk for perioperative complications with body mass index over 50 11. Overall, patient has expressed understanding of bariatric care including postoperative diet and commitment of lifestyle. Patient should benefit from surgical intervention for correction of morbid obesity. Past Medical History Past Medical History: No Reported History Additional Past Medical History / Comment(s): OBESITY History of Any Multi-Drug Resistant Organisms: None Reported Past Surgical History: Section, Cholecystectomy, Hysterectomy, Tonsillectomy, Uterine Ablation Additional Past Surgical History / Comment(s): wisdom teeth extraction, laparoscopic exam- left ovary removed, and fallopian tube removed , D&C , C SECTION X3, cyst removed off right ovary , EGD Past Anesthesia/Blood Transfusion Reactions: Postoperative Nausea & Vomiting (PONV) Additional Past Anesthesia/Blood Transfusion Reaction / Comment(s): PONV after first , hard to wake up after left ovary removed Smoking Status: Former smoker - Past Family History Mother Family Medical History: CVA/TIA, Hyperlipidemia, Hypertension Medications and Allergies Home Medications Medication Instructions Recorded Confirmed Type Ergocalciferol [Vitamin D2 (1250 1,250 mcg PO TRENT 07/02/23 07/02/23 History Mcg = 03554 Iu)] Allergies Allergy/AdvReac Type Severity Reaction Status Date / Time No Known Allergies Allergy Verified 07/02/23 11:14
[~2023-07-09 09:52] MED LIST changes: +ACETAMINOPHEN TAB 500 MG TAB PO PRN; -ALBUTEROL INHALER 60 PUFF/8 GM INHALER INHALATION ONE; +ALVIMOPAN 12 MG CAPSULE PO PRN; +CHLORHEXIDINE GLUCONATE 15 ML CUP MUCOUS MEM PRN; -DEXAMETHASONE SOD PHOSPHATE 10 MG/ML 1 ML VIAL IV ONE; +ENOXAPARIN 40 MG/0.4 ML SYRINGE SQ PRN; +HYDROmorphone 0.5 MG/0.5 ML SYRINGE IVP PRN; -KETOROLAC 30 MG/ML 1 ML VIAL ONE; -LIDOCAINE 1% 20 ML VIAL (10MG/ML) FOR IV START INTRADERMA PRN; -LIDOCAINE 1% INJ 10MG/ML (20 ML MDV) ONE; -ONDANSETRON 4 MG/2 ML VIAL IVP ONE; +ONDANSETRON 4 MG/2 ML VIAL IVP PRN; +PANTOPRAZOLE 40 MG/10 ML VIAL IVP PRN; -PROPOFOL 10 MG/ML 20 ML VIAL IV ONE; -Pre Op ABX Message 1 EACH MISC MISCELLANE ONE; +SCOPOLAMINE 1 MG/72 HR PATCH TRANSDERM STA; -SUCCINYLCHOLINE CHLORIDE VIAL 200 MG/10 ML VIAL IV ONE; +ceFAZolin 3 GM in SODIUM CHLORIDE 0.9% 100 ML IVPB PRN; +droPERidol 5 MG/2 ML VIAL IVP ONE; -fentaNYL (PF) 50 MCG/ML 2 ML AMP ONE
[2023-07-09] MEDS ORDERED: LACTATED RINGERS 1,000 ML IV ONE (11:26)
[2023-07-09] MEDS ORDERED: DEXAMETHASONE SOD PHOSPHATE 4 MG/ML 1 ML VIAL IVP ONE (11:27)
[2023-07-09] MEDS ORDERED: SCOPOLAMINE 1 MG/72 HR PATCH TRANSDERM ONE (11:28)
[2023-07-09] MEDS ORDERED: SUGAMMADEX SODIUM 200 MG/2 ML SDV IV ONE (13:18)
[2023-07-09] MEDS ORDERED: fentaNYL (PF) 50 MCG/ML 2 ML AMP ONE (13:18)
[2023-07-09] MEDS ORDERED: ALBUTEROL HFA INHALER INHALATION ONE (13:18)
[2023-07-09] MEDS ORDERED: MIDAZOLAM 2 MG/2 ML VIAL ONE (13:18)
[2023-07-09] MEDS ORDERED: PROPOFOL 10 MG/ML 20 ML VIAL IV ONE (13:18)
[2023-07-09] MEDS ORDERED: SUCCINYLCHOLINE CHLORIDE 200 MG/10 ML VIAL IV ONE (13:18)
[2023-07-09] MEDS ORDERED: LIDOCAINE 1% INJ 10MG/ML (20 ML MDV) ONE (13:18)
[2023-07-09] MEDS ORDERED: ROCURONIUM 10 MG/ML (5 ML VIAL) IV ONE (13:18)
[2023-07-09] MEDS ORDERED: LIDOCAINE 1%-EPI 1:100,000 50 ML VIAL SQ ONE (13:22)
--- NOTE | 2023-07-09 14:57 | P.PN ---
Progress Note - Text Progress Note Date: 07/09/23 Intraoperative findings of severe hepatomegaly discussed with the patient's family. Patient was awake in recovery and surgery aborted due to severe hepatomegaly and fatty liver disease despite documented 4 pound weight loss in 2 months per chart records. Severe hepatomegaly prohibits her procedure. Patient will follow-up with the bariatric center with dedicated adjustment of her dietary plan with rescheduled procedure date.
[2023-07-09 15:08] VITALS: TEMP 97.2
[2023-07-09 15:37] VITALS: BP 152/72; PULSE 94; RESP 18
--- NOTE | 2023-07-09 21:25 | P.OP ---
Date of Procedure: 07/09/23 Description of Procedure: SURGEON: JADYN ACEVES MD PREOPERATIVE DIAGNOSES: 1. Morbid obesity due to excess calories 2. Body mass index of 56.3 3. Osteoarthritis of the knees. 4. Osteoarthritis of the lower back. 5. Generalized anxiety disorder 6. Depressive disorder 7. Vitamin D deficiency POSTOPERATIVE DIAGNOSES: 1. Morbid obesity due to excess calories 2. Body mass index of 56.3 3. Osteoarthritis of the knees. 4. Osteoarthritis of the lower back. 5. Generalized anxiety disorder 6. Depressive disorder 7. Vitamin D deficiency 8. Severe hepatomegaly with fatty liver disease OPERATION: 1. Robotic assisted daVinci Xi laparoscopic sleeve gastrectomy ABORTED 2. Diagnostic laparoscopy ANESTHESIA: Gen. local anesthetic ESTIMATED BLOOD LOSS: 5 mL SPECIMENS REMOVED: None COMPLICATIONS: None. FINDINGS: 1. Severe hepatomegaly with fatty liver disease prohibiting procedure for sleeve gastrectomy INDICATIONS: Shima Gentile is a 38-year-old female who comes with lifelong morbid obesity. She comes in looking into the sleeve gastrectomy. As a result of her morbid obesity, she has developed osteoarthritis of the lower back and knees. She has completed medical risk assessment, dietary surveillance and counseling, psychological risk assessment, medical supervised weight loss and bariatric risk assessment. She presents for surgical options. At height of 5 feet 6 inches, her ideal body weight is 154 pounds. She comes in 346 to 343 pounds in 2 months. Her highest weight is 358 pounds. Greatest body mass index 57.9. Her body mass index is 55.84 She is 192 pounds overweight. All surgical options for morbid obesity had been described using the [place] [facility] collaborative comorbidity resolution including complication risk score. A second-generation bariatric consent form was described in detail including the possibility of protein malnutrition, leaks, gastric stricture, venous thrombosis, gastroesophageal reflux disease, need for further surgery for which she demonstrated understanding. Benefits and risks of the procedure were described at length. Informed consent was obtained. Additionally, patient specifically educated to adhere to 2 week high-protein low carb diet to address hepatomegaly with anticipated weight loss over 10 pounds. Patient is aware that noncompliance or persistent hepatomegaly may lead to cancellation of her surgery. Patient had agreed to proceed knowing the risks. DESCRIPTION: The patient was brought into the operating room theater. Preoperatively she had received Lovenox subcutaneously for DVT prophylaxis. Additionally she had Peridex oral solution as an oral decontaminant. After general induction, the abdomen was prepped and draped in standard sterile fashion. An Ioban draping was placed along the abdomen. A robotic da Bart Xi system was prepped and primed. At 15 cm from the xiphoid, proposed port sites were marked with indelible marker along the anterior axillary line bilaterally, mid axillary line bilaterally with each ports were marked 10 to 15 cm from each other. The robotic stapler port was marked for the right midclavicular line. A 5 mm 0 degrees laparoscopic trocar entry was performed along the left upper quadrant. The abdomen was insufflated to 15 mmHg pressure was tolerated well. Diagnostic laparoscopy demonstrated no injury to bowel, viscera, or mesentery. The liver was large with hepatomegaly including evidence of fatty liver disease. The liver edge was round demonstrating moderate to severe hepatomegaly prohibiting progression of her case. With this finding, case was aborted. The incision was closed using subcuticular interrupted suture of 4-0 Monocryl. Exofin was applied to the skin once the skin had been cleansed. At the end of the procedure, needle, sponge, and instrument count was verified correct by the computer support technician. The patient was taken to the postanesthesia care unit in stable condition. Intraoperative findings were shared with the patient's including the patient will follow up at the bariatric center.
== END 2023-07-09 16:00 | disposition home or self-care (01) ==
LOC: OR 09:52 → UNDOADMIN 09:52 → 2ORMAIN 09:52 → EDSTATUS 10:50 → UNDODISIN 16:00 → OR 16:00
PROVIDERS: ATTEND Surgery Plastic and Reconstructive Surgery
DX: E66.01 Morbid (severe) obesity due to excess calories (principal); Z68.43 Body mass index [BMI] 50.0-59.9, adult; Z53.09 Procedure and treatment not carried out because of other contraindication; M17.0 Bilateral primary osteoarthritis of knee; M47.816 Spondylosis without myelopathy or radiculopathy, lumbar region; F41.1 Generalized anxiety disorder; F32.A Depression, unspecified; E55.9 Vitamin D deficiency, unspecified; K76.0 Fatty (change of) liver, not elsewhere classified; Z90.49 Acquired absence of other specified parts of digestive tract; Z90.710 Acquired absence of both cervix and uterus; Z79.899 Other long term (current) drug therapy; Z87.891 Personal history of nicotine dependence; Z83.49 Family history of other endocrine, nutritional and metabolic diseases

== ENCOUNTER → 2023-07-11 | Outpatient (CLI) | payer BC ==
--- NOTE | 2023-07-11 17:09 | P.BASOAP ---
Subjective Progress Note Date: 07/11/23 Return to work notice needed. Plan for return to surgery. Needs 331 pounds target for additional weight loss. Get down to 331 pounds. Surgery was canceled due to severity paraumbilically despite mild weight loss Assessment/Plan Plan: Date: Initial Weight: Initial BMI: Current Weight: Current BMI: Type of Surgery: Total Volume in Band: Previous Volume: Volume Removed: Volume Added: Band Size:
--- NOTE | 2023-07-11 17:19 | P.PN ---
Progress Note - Text Progress Note Date: 07/11/23 To whom it may concern: Shima Gentile is under my surgical care. She may return to work Jul 12, 2023. Regards, ' Angie Hogue MD, FACS
[2023-07-12 10:30] VITALS: BP 121/83; PULSE 80; RESP 16; TEMP 97.7; BMI 56.3
== END | disposition home or self-care (01) ==
LOC: BARWHC3 16:12
PROVIDERS: ATTEND Surgery Plastic and Reconstructive Surgery
DX: Z98.890 Other specified postprocedural states (principal); Z88.3 Allergy status to other anti-infective agents; Z87.891 Personal history of nicotine dependence
CPT/HCPCS: 99211

== ENCOUNTER → 2023-08-01 | Outpatient (CLI) | payer BC ==
[2023-08-01 15:50] LABS: Basophils # (A) 0.04 X 10*3/uL (0.00-0.10); Basophils % (A) 0.6 %; Eosinophils # (A) 0.16 X 10*3/uL (0.04-0.35); Eosinophils % (A) 2.2 %; HCT 41.5 % (37.2-46.3); HGB 13.9 g/dL (12.0-15.0); Lymphocytes # (A) 2.27 X 10*3/uL (0.90-5.00); Lymphocytes % (A) 31.9 %; MCH 30.3 pg (27.0-32.0); MCHC 33.5 g/dL (32.0-37.0); MCV 90.4 FL (80.0-97.0); Mean Platelet Volume 13.2 FL (9.5-12.2); Monocytes # (A) 0.59 X 10*3/uL (0.20-1.00); Monocytes % (A) 8.3 %; NRBC Per 100 WBC 0 X 10*3/uL (0.00-0.01); Neutrophils # (A) 4.03 X 10*3/uL (1.80-7.70); Neutrophils % (A) 56.6 %; Platelet Count 182 X 10*3/uL (140-440); RBC 4.59 X 10*6/uL (4.10-5.20); RDW 13.1 % (11.5-14.5); WBC 7.12 X 10*3/uL (4.50-10.00)
[2023-08-01 16:05] LABS: ALT 26 U/L (8-44); AST 24 U/L (13-35); Albumin/Globulin Ratio 1.54 Ratio (1.60-3.17); Alkaline Phosphatase 49 U/L (41-126); Blood Urea Nitrogen 13.3 mg/dL (9.0-27.0); Calcium 9.7 mg/dL (8.7-10.3); Chloride 106 mmol/L (96-109); Globulin 2.6 g/dL (1.6-3.3); Glucose 93 mg/dL (70-110); Potassium 4.3 mmol/L (3.5-5.5); Sodium 140 mmol/L (135-145); Total Bilirubin 0.4 mg/dL (0.3-1.2); Total Protein 6.6 g/dL (6.2-8.2)
== END | disposition home or self-care (01) ==
LOC: LABWHC1 07:58
PROVIDERS: ATTEND Surgery Plastic and Reconstructive Surgery
DX: Z01.812 Encounter for preprocedural laboratory examination (principal)
CPT/HCPCS: 36415; 80053; 85025; 86850; 86900; 86901

== ENCOUNTER 2023-08-06 11:39 | Inpatient (IN) | payer BC ==
--- NOTE | 2023-08-06 07:58 | P.GSHP ---
History of Present Illness H&P Date: 08/06/23 CHIEF COMPLAINT: Morbid obesity HISTORY OF PRESENT ILLNESS: Shima Gentile is a 38-year-old female who comes with lifelong morbid obesity. She comes in looking into the sleeve gastrectomy. As a result of her morbid obesity, she has developed osteoarthritis of the lower back and knees. She has completed medical risk assessment, dietary surveillance and counseling, psychological risk assessment, medical supervised weight loss and bariatric risk assessment. She had previous attempt of her sleeve gastrectomy however due to severe fatty liver disease and hepatomegaly, her surgery was aborted. She presents today for sleeve gastrectomy after additional weight loss. At height of 5 feet 6 inches, her ideal body weight is 154 pounds. She comes in 330 pounds from 346 pounds, 1 month ago. She lost 17 pounds in 1 month. Her highest weight is 358 pounds. Greatest body mass index 57.9. Her body mass index is 53.3. She is 176 pounds overweight. PAST MEDICAL HISTORY: 1. Morbid obesity due to excess calories 2. Body mass index of 57.9 3. Osteoarthritis of the knees. 4. Osteoarthritis of the lower back. 5. Generalized anxiety disorder 6. Depressive disorder PAST SURGICAL HISTORY: 1. section 2. Cholecystectomy 3. Hysterectomy 4. Tonsillectomy 5. Uterine ablation 6. Salpingo-oophorectomy 7. Dilatation and curettage 8. [place] tooth extraction HOME MEDICATIONS: Previous Rx's Medication Instructions Recorded Ergocalciferol [Vitamin D2 (1250 1,250 mcg PO WEEKLY #20 cap 05/09/23 Mcg = 15030 Iu)] ALLERGIES: Allergies Allergy/AdvReac Type Severity Reaction Status Date / Time No Known Allergies Allergy Verified 04/23/23 07:16 SOCIAL HISTORY: Past tobacco use. FAMILY HISTORY: No family history of ulcerative colitis disease or Crohn's disease. Family history of morbid obesity. No lupus in the family. No reports of stomach or esophageal cancer. REVIEW OF ORGAN SYSTEMS: CONSTITUTIONAL: At height of 5 feet 6 inches, her ideal body weight is 154 pounds. She comes in 349 pounds. Her body mass index is 56.3. She is 195 pounds overweight. HEENT: Denies any active troubles with vision or hearing. ENDOCRINE: Denies diabetes. No hypothyroidism. CARDIOVASCULAR: Denies past reports of palpitations or heart attacks or chest pain. Denies hypertensive heart disease. RESPIRATORY: Has daytime somnolence. GASTROINTESTINAL: Denies any bright red blood per rectum. No diarrhea. No constipation. GENITOURINARY: Denies bladder urgency. No recent blood in urine MUSCULOSKELETAL: Has lower back pain and joint pain. Has osteoarthritis of the knees. History of bilateral lower extremity edema. NEURO: No headaches. No seizure disorders. Has neuropathy. PSYCH: Has depression. No suicidal ideation. RHEUMATOLOGIC: No lupus. No rheumatoid arthritis. HEMATOLOGIC: Denies any abnormal bleeding or bruising. SKIN: No rash. No skin cancer. PHYSICAL EXAM: VITAL SIGNS: Height 5 foot 6 inches, weight 346 pounds. BMI 55.8 GENERAL: Well-developed in no acute distress. HEENT: No scleral icterus. Extraocular movements grossly intact. Hears conversational speech. No nasal drainage. NECK: Supple without lymphadenopathy. CHEST: Nonlabored respirations with equal bilateral excursions. CARDIOVASCULAR: Regular rate and regular rhythm. Distal 2+ pulses. ABDOMEN: Obese, soft, nontender, nondistended. MUSCULOSKELETAL: No clubbing, cyanosis. NEURO: No focal or lateralizing signs. Cranial nerves 2 through 12 grossly within normal limits. PSYCH: Appropriate affect. Alert and oriented to person, place and time. SKIN: Good skin turgor. Well perfused. ASSESSMENT: 1. Morbid obesity due to excess calories 2. Body mass index of 56.3 to 53.3 3. Osteoarthritis of the knees. 4. Osteoarthritis of the lower back. 5. Generalized anxiety disorder 6. Depressive disorder 7. Vitamin D deficiency PLAN: 1. Bariatric options between a sleeve, band and a Angie-en-Y gastric bypass were reviewed in detail. The patient elected for a sleeve gastrectomy. Robotic assisted approach described. 2. The [place] [facility] Data was also reviewed with benefits and risks as described. 3. An 8 page second-generation bariatric consent form was reviewed in detail including potential of bleeding, infection, leaks, adequate weight loss, nutritional deficiencies which the patient demonstrated understanding of the risks. 4. A 2 week high-protein low caloric 800 kcal diet described to address hepatomegaly. Anticipated weight loss over 10 pounds described. 5. Preoperative labs including complete metabolic panel and CBC with type and screen recommended. 6. DVT prophylaxis per [place] [facility]. 7. Antibiotic prophylaxis. 8. Inpatient hospitalization anticipated for more than 2 nights. 9. All questions and concerns were addressed with the patient. 10. The patient is at elevated risk for perioperative complications with body mass index over 50 11. Overall, patient has expressed understanding of bariatric care including postoperative diet and commitment of lifestyle. Patient should benefit from surgical intervention for correction of morbid obesity. 12. Anticipated weight loss of 5% described to 331 pounds or less Past Medical History Past Medical History: Liver Disease Additional Past Medical History / Comment(s): OBESITY, FATTY LIVER DISCOVERED 07/09/23 History of Any Multi-Drug Resistant Organisms: None Reported Past Surgical History: Section, Cholecystectomy, Hysterectomy, Tonsi llectomy, Uterine Ablation Additional Past Surgical History / Comment(s): wisdom teeth extraction, laparoscopic exam- left ovary removed, and fallopian tube removed , D&C , C SECTION X3, cyst removed off right ovary , EGD, ATTEMPTED GASTRIC SLEEVE 07/08/23-HEPATOMEGALY DISCOVERED AND PROCEDURE WAS ABORTED Past Anesthesia/Blood Transfusion Reactions: Postoperative Nausea & Vomiting (PONV) Additional Past Anesthesia/Blood Transfusion Reaction / Comment(s): PONV after first , hard to wake up after left ovary removed Smoking Status: Former smoker - Past Family History Mother Family Medical History: CVA/TIA, Hyperlipidemia, Hypertension Medications and Allergies Home Medications Medication Instructions Recorded Confirmed Type Ergocalciferol [Vitamin D2 (1250 1,250 mcg PO TRENT 07/02/23 07/31/23 History Mcg = 24746 Iu)] Allergies Allergy/AdvReac Type Severity Reaction Status Date / Time chlorhexidine AdvReac Rash/Hives Verified 07/31/23 09:07 [From [facility]]
[2023-08-06] MEDS: ALVIMOPAN 12 MG CAPSULE PO PRN (11:54)
[2023-08-06] MEDS: LACTATED RINGERS 1,000 ML IV ONE ×2 (11:54→15:31)
[2023-08-06] MEDS: PANTOPRAZOLE 40 MG/10 ML VIAL IVP STA (11:54)
[2023-08-06] MEDS: SCOPOLAMINE 1 MG/72 HR PATCH TRANSDERM STA (11:54)
[2023-08-06] MEDS: ONDANSETRON 4 MG/2 ML VIAL IVP PRN (11:54)
[2023-08-06] MEDS: ACETAMINOPHEN TAB 500 MG TAB PO PRN (11:54)
[2023-08-06] MEDS: ENOXAPARIN 40 MG/0.4 ML SYRINGE SQ PRN (11:54)
[2023-08-06] MEDS: ceFAZolin 3 GM in SODIUM CHLORIDE 0.9% 100 ML IVPB PRN (12:45)
[2023-08-06] MEDS ORDERED: SUCCINYLCHOLINE CHLORIDE 200 MG/10 ML VIAL IV ONE (13:39)
[2023-08-06] MEDS ORDERED: MIDAZOLAM 2 MG/2 ML VIAL ONE (13:39)
[2023-08-06] MEDS ORDERED: HYDROmorphone (PF) 1 MG/ML ONE (13:39)
[2023-08-06] MEDS ORDERED: ROCURONIUM 10 MG/ML (5 ML VIAL) IV ONE (13:39)
[2023-08-06] MEDS ORDERED: fentaNYL (PF) 50 MCG/ML 2 ML AMP ONE (13:39)
[2023-08-06] MEDS ORDERED: NEOSTIGMINE 1 MG/ML 10 ML VIAL ONE (13:39)
[2023-08-06] MEDS ORDERED: PROPOFOL 10 MG/ML 20 ML VIAL IV ONE (13:39)
[2023-08-06] MEDS ORDERED: GLYCOPYRROLATE 0.2 MG/ML 2 ML VIAL ONE (13:39)
[2023-08-06] MEDS ORDERED: LIDOCAINE 1% INJ 10MG/ML (20 ML MDV) ONE (13:39)
[2023-08-06] MEDS: LIDOCAINE 1%-EPI 1:100,000 50 ML VIAL SQ ONE (14:14)
[2023-08-06] MEDS ORDERED: NALOXONE 0.4 MG/ML 1 ML VIAL IV PRN (16:10)
[2023-08-06] MEDS: HYDROmorphone 0.5 MG/0.5 ML SYRINGE IVP ONE (16:13)
--- NOTE | 2023-08-06 16:21 | P.OP ---
Date of Procedure: 08/06/23 Description of Procedure: SURGEON: JADYN ACEVES MD PREOPERATIVE DIAGNOSES: 1. Morbid obesity due to excess calories 2. Body mass index of 57.9, initial to 52.4 3. Osteoarthritis of the knees. 4. Osteoarthritis of the lower back. 5. Generalized anxiety disorder 6. Depressive disorder 7. Vitamin D deficiency 8. Hepatomegaly with fatty liver disease POSTOPERATIVE DIAGNOSES: 1. Morbid obesity due to excess calories 2. Body mass index of 57.9, initial to 52.4 3. Osteoarthritis of the knees. 4. Osteoarthritis of the lower back. 5. Generalized anxiety disorder 6. Depressive disorder 7. Vitamin D deficiency 8. Hepatomegaly with fatty liver disease OPERATION: 1. Robotic assisted daVinci Xi laparoscopic sleeve gastrectomy with 40-Chadian bougie, multiport. 2. Intraoperative esophagogastroduodenoscopy. ANESTHESIA: Gen. local anesthetic ESTIMATED BLOOD LOSS: 5 mL SPECIMENS REMOVED: Sleeve gastrectomy COMPLICATIONS: None. FINDINGS: 1. Negative intraoperative esophagogastrojejunoscopy leak test. 2. No hepatomegaly and no large hiatus hernia. 3. Total of 6 staplers used including 2 - 60 mm green robot taiwo and 4 - 60 mm blue robot loads used to create the gastric sleeve. 4. Sleeve gastrectomy, 26 x 6 cm INDICATIONS: Shima Gentile is a 38-year-old female who comes with lifelong morbid obesity. She comes in looking into the sleeve gastrectomy. As a result of her morbid obesity, she has developed osteoarthritis of the lower back and knees. She has completed medical risk assessment, dietary surveillance and counseling, psychological risk assessment, medical supervised weight loss and bariatric risk assessment. At height of 5 feet 6 inches, her ideal body weight is 154 pounds. Her highest weight is 358 pounds. Greatest body mass index 57.9. Her body mass index is 53.3. She is 176 pounds overweight. All surgical options for morbid obesity had been described using the [place] [facility]ariat[facility] collaborative comorbidity resolution including complication risk score. A second-generation bariatric consent form was described in detail including the possibility of protein malnutrition, leaks, gastric stricture, venous thrombosis, gastroesophageal reflux disease, need for further surgery for which she demonstrated understanding. Benefits and risks of the procedure were described at length. Informed consent was obtained. DESCRIPTION: The patient was brought into the operating room theater. Preoperatively she had received Lovenox subcutaneously for DVT prophylaxis. Additionally she had Peridex oral solution as an oral decontaminant. After general induction, the abdomen was prepped and draped in standard sterile fashion. An Ioban draping was placed along the abdomen. A robotic da Bart Xi system was prepped and primed. At 15 cm from the xiphoid, proposed port sites were marked with indelible marker along the anterior axillary line bilaterally, mid axillary line bilaterally with each ports were marked 10 to 15 cm from each other. The robotic stapler port was marked for the right midclavicular line. A 5 mm 0 degrees laparoscopic trocar entry was performed along the left upper quadrant. The abdomen was insufflated to 15 mmHg pressure was tolerated well. Diagnostic laparoscopy demonstrated no injury to bowel, viscera, or mesentery. No evidence of large hiatus hernia was identified. The liver edge was still round however moderately improved despite her 2-week high-protein low carbohydrate diet. Hepatomegaly was still present however improved. A 8 mm port was placed along the left upper abdominal wall after exchanging the 5 mm port. A separate 8 mm port was placed along the left lateral abdominal wall. Please note that the ports were placed at least 20 cm away from the target anatomy. Care was taken to check each robotic arms were safely away from collision with the bed or the patient. At the epigastrium, a medium sized [place] liver retractor was placed under direct visualization with the Iron Investment Underwriter placed under the right shoulder of the patient. Next, 12-mm robot stapler port was placed along the right upper quadrant. The camera 8-mm port was maintained along the epigastrium. The patient was repositioned in reverse Trendelenburg position at 21-degrees after lowering the bed. The robot was docked along the left side of the patient. Using a grasper for arm 4, a vessel sealer for arm 3, including grasper for arm 1, the robotic system was docked and primed as described. Instruments were interchanged by the financial planning assistant for stapler loads. The camera was placed at 30- degrees down. I had sat at the console. The pylorus was identified and 6 cm proximally along the greater curvature of the stomach, the short gastrics were mobilized upwards to the angle of His using a vessel sealer. Hemostasis was excellent during this portion of the procedure. Next, the upper pole of the stomach was adherent to the left cl, which was gently dissected free using atraumatic grasper. I went to the head of the bed and placed 40-Chadian blunt bougie into the stomach. The bougie was readjusted by the nurse pc tech. Robotic stapler black load 60 mm 2 followed by green 60 mm x 5 loads were used to create the sleeve. Initial firing was across the antrum of the stomach to wards the angle of His. The staple line was linear without corkscrewing. The space from the angularis incisura of the sleeve was approximately 4 cm. I then went to the head of the bed to perform the intraoperative esophagogastroduodenoscopy leak test. The bougie was withdrawn. The upper pole of the stomach was bathed using normal saline solution. The scope was withdrawn with careful inspection along the staple line for which no leaks were found along the entire length. Additionally,the sleeve was completely hemostatic without any encroachment along the angularis incisura. Its topology was a soft "J". No stricture was encountered upon placement of the scope. The GI tract was desufflated. The patient tolerated this portion of the procedure well. The scope was completely withdrawn. The robot was undocked. I then rescrubbed into case, whereby the irrigation fluid was aspirated from the abdominal cavity. Tisseel fibrin sealant was placed along the entire staple length. Once dried the [place] liver retractor was removed. Attention was now brought to removal of the specimen. The distal end of the sleeve gastrectomy specimen was brought out through the 12 mm port at the left upper quadrant. The specimen was gently removed en total. No contamination had occurred during this process. All instruments and pneumoperitoneum including irrigation fluid was removed from the abdominal cavity. The 12 mm port site was closed using 0-Vicryl and Ricardo Holcomb and irrigated with diluted hydrogen peroxide. The final incisions were closed using subcuticular interrupted suture of 4-0 Monocryl. Exofin was applied to the skin once the skin had been cleansed. OptiFoam dressing was placed along the stomach extraction site. The sleeve specimen was measured and checked also for leaks which none were found. At the end of the procedure, needle, sponge, and instrument count was verified correct by the surgical rn. The patient was taken to the postanesthesia care unit in stable condition. She had tolerated the procedure well. Intraoperative films and findings were reviewed with the patient's family.
[2023-08-06] MEDS: droPERidol 5 MG/2 ML VIAL IVP ONE (16:57)
[2023-08-06] MEDS: ACETAMINOPHEN IV (For NPO) 1,000 MG in EMPTY BAG 1 BAG IVPB SCH (17:15)
[2023-08-06] MEDS: diphenhydrAMINE 50 MG/ML 1 ML VIAL IVP PRN (17:17)
[2023-08-06] MEDS: SODIUM CHLORIDE 0.9% 2,000 ML IV ONE (17:18)
[2023-08-06] MEDS: DEXAMETHASONE SOD PHOSPHATE 4 MG/ML 1 ML VIAL IVP SCH (17:18)
[2023-08-06] MEDS: ONDANSETRON 4 MG/2 ML VIAL IVP SCH (17:18)
[2023-08-06] MEDS: DEXAMETHASONE SOD PHOSPHATE 10 MG/ML 1 ML VIAL IVP ONE (19:49)
[2023-08-06] MEDS: SIMETHICONE 80 MG CHEWABLE PO SCH (19:49)
[2023-08-06] MEDS: HYOSCYAMINE ORAL DROPS 1.875 MG/15 ML BOTTLE PO SCH (19:49)
[2023-08-06] MEDS: 0.9% NACL WITH KCL 20 MEQ/L 1,000 ML IV SCH (19:49)
[2023-08-06] MEDS: PANTOPRAZOLE 40 MG/10 ML VIAL IV SCH (19:49)
[2023-08-06] MEDS: ceFAZolin 3 GM in SODIUM CHLORIDE 0.9% 100 ML IVPB SCH (19:50)
[2023-08-06] MEDS: HYDROmorphone 1 MG/ML 1 ML SYRINGE IVP PRN (19:58)
[2023-08-06] MEDS: ALBUTEROL NEBULIZED 2.5 MG/3 ML INHALATION SCH (21:11)
[2023-08-07] MEDS: 0.9% NACL WITH KCL 20 MEQ/L 1,000 ML IV SCH (08:10)
[2023-08-07] MEDS: ENOXAPARIN 40 MG/0.4 ML SYRINGE SQ SCH (08:11)
--- NOTE | 2023-08-07 11:13 | FL ---
EXAMINATION TYPE: FL UGI DATE OF EXAM: 08/07/2023 LIMITED UGI: CLINICAL HISTORY: Morbid Obesity, lap band placed earlier today. TECHNIQUE: Limited esophagram is performed utilizing real to oz of Omnipaque 350. A total of 39 sec onds of fluoroscopic time was utilized during procedure. COMPARISON: None. FINDINGS: The patient swallowed contrast without difficulty or delay. Esophageal peristalsis and mo tility are within normal limits. There is good flow of contrast along the diaphragmatic hiatus into proximal stomach and subsequent flow into gastric sleeve. There is good flow from distal sleeve into pylorus and duodenal sweep. Patient remains asymptomatic. There is no evidence of contrast extravasat ion to suggest leak. IMPRESSION: No evidence of leak or significant obstruction status post recent gastric sleeve surgery.
[2023-08-07 11:30] LABS: Basophils # (A) 0.01 X 10*3/uL (0.00-0.10); Basophils % (A) 0.2 %; Eosinophils # (A) 0 X 10*3/uL (0.04-0.35); Eosinophils % (A) 0 %; HCT 39.6 % (37.2-46.3); HGB 12.7 g/dL (12.0-15.0); Lymphocytes # (A) 0.72 X 10*3/uL (0.90-5.00); Lymphocytes % (A) 11.9 %; MCH 29.1 pg (27.0-32.0); MCHC 32.1 g/dL (32.0-37.0); MCV 90.6 FL (80.0-97.0); Mean Platelet Volume 12.6 FL (9.5-12.2); Monocytes # (A) 0.08 X 10*3/uL (0.20-1.00); Monocytes % (A) 1.3 %; NRBC Per 100 WBC 0 X 10*3/uL (0.00-0.01); Neutrophils # (A) 5.24 X 10*3/uL (1.80-7.70); Neutrophils % (A) 86.3 %; Platelet Count 207 X 10*3/uL (140-440); RBC 4.37 X 10*6/uL (4.10-5.20); RDW 12.8 % (11.5-14.5); WBC 6.07 X 10*3/uL (4.50-10.00)
[2023-08-07 11:33] VITALS: BMI 52.3
[2023-08-07 11:40] LABS: Blood Urea Nitrogen 7.7 mg/dL (9.0-27.0); Calcium 8.5 mg/dL (8.7-10.3); Carbon Dioxide 20.8 mmol/L (21.6-31.8); Chloride 106 mmol/L (96-109); Phosphorus 2.7 mg/dL (2.4-5.1); Potassium 4.6 mmol/L (3.5-5.5); Sodium 140 mmol/L (135-145)
--- NOTE | 2023-08-07 14:07 | P.PN ---
Subjective Progress Note Date: 08/07/23 CHIEF COMPLAINT: Morbid obesity HISTORY OF PRESENT ILLNESS: Postop day #1 status post robotic laparoscopic sleeve gastrectomy. Patient is tolerating liquid diet. Upper GI showed no leak or obstruction. Patient did require the IV pain medication this afternoon. She has been up and ambulating. No flatus. Denies any nausea or vomiting. PHYSICAL EXAM: VITAL SIGNS: Reviewed GENERAL: Well-developed in no acute distress. HEENT: No sclera icterus. Extraocular movements grossly intact. Moist buccal mucosa. Head is atraumatic, normocephalic. Hears conversational speech. No nasal drainage. NECK: Supple without lymphadenopathy. CHEST: Non-labored respirations and equal bilateral excursions. CARDIOVASCULAR: Palpable 2+ radial pulses. ABDOMEN: Soft. Nondistended. Abdominal binder in place MUSCULOSKELETAL: No clubbing or cyanosis. NEUROLOGIC: No focal or lateralizing signs. Cranial nerves II through XII grossly intact. PSYCH: Appropriate affect. Alert and oriented to person, place and time. SKIN: Well perfused. Good skin turgor. ASSESSMENT: 1. Morbid obesity due to excess calories 2. Body mass index of 57.9, initial to 52.4 3. Osteoarthritis of the knees. 4. Osteoarthritis of the lower back. 5. Generalized anxiety disorder 6. Depressive disorder 7. Vitamin D deficiency 8. Hepatomegaly with fatty liver disease PLAN: -Continue pain management -Continue bariatric clear liquid diet -Continue IV fluids -Encourage patient to ambulate -Anticipate discharge tomorrow Physician Animal Rescuer note has been reviewed by physician. Signing provider agrees with the documented findings, assessment, and plan of care. Objective - Vital Signs Vital signs: Vital Signs Temp 98.3 F 08/07/23 13:04 Pulse 71 08/07/23 13:04 Resp 19 08/07/23 13:04 BP 151/88 08/07/23 13:04 Pulse Ox 91 L 08/07/23 13:04 FiO2 Intake & Output 08/06/23 08/07/23 08/07/23 18:59 06:59 18:59 Intake Total 1400 Output Total 5 Balance 1395 Weight 147.2 kg 147.2 kg Intake: IV 1400 Output: Estimated Blood Loss 5 Other: Voiding Method Toilet # Voids 4 1 - Labs CBC & Chem 7: 08/07/23 07:52 08/07/23 07:52 Labs: Abnormal Lab Results - Last 24 Hours (Table) 08/07/23 08/07/23 Range/Units 07:52 07:52 MPV 12.6 H (9.5-12.2) FL Lymphocytes # 0.72 L (0.90-5.00) X 10*3/uL Monocytes # 0.08 L (0.20-1.00) X 10*3/uL Eosinophils # 0 L (0.04-0.35) X 10*3/uL Carbon Dioxide 20.8 L (21.6-31.8) mmol/L Anion Gap 13.20 H (4.00-12.00) mmol/L BUN 7.7 L (9.0-27.0) mg/dL Calcium 8.5 L (8.7-10.3) mg/dL
[2023-08-08] MEDS ORDERED: bisacodyL 5 MG TABLET.DR PO PRN (08:00)
[2023-08-08 09:18] VITALS: TEMP 98
--- NOTE | 2023-08-08 13:17 | P.DS ---
Providers Date of admission: 08/06/23 11:39 Expected date of discharge: 08/08/23 Attending physician: Angie Hogue Primary care physician: Macy Swann Hospital Course: Discharge diagnosis 1. Morbid obesity due to excess calories 2. Body mass index of 57.9, initial to 52.4 3. Osteoarthritis of the knees. 4. Osteoarthritis of the lower back. 5. Generalized anxiety disorder 6. Depressive disorder 7. Vitamin D deficiency 8. Hepatomegaly with fatty liver disease Hospital course This is a 38-year-old female with known morbid obesity. She is status post robotic assisted laparoscopic sleeve gastrectomy. Upper GI shows no evidence of leak or obstruction. Patient's pain is controlled. She is tolerating diet. She is having bowel movements. She denies any difficulty urinating. She has been up and ambulating. She is afebrile. She is stable for discharge. Physician Emergency Medical Service Manager note has been reviewed by physician. Signing provider agrees with the documented findings, assessment, and plan of care. Patient Condition at Discharge: Stable Plan - Discharge Summary Discharge Rx Participant: Yes New Discharge Prescriptions: New Ondansetron Odt [Zofran Odt] 4 mg PO Q8HR PRN #9 tab PRN Reason: Nausea bisacodyL [Dulcolax] 5 mg PO DAILY PRN #10 tab PRN Reason: Constipation Simethicone 40 mg/0.6 ml Drops [Mylicon Drops] 40 mg PO PCHS PRN #30 ml PRN Reason: Gas Omeprazole [PriLOSEC] 40 mg PO DAILY #30 cap Acetaminophen Tab [Tylenol] 1,000 mg PO Q6HR PRN #30 tablet PRN Reason: Pain Discontinued Ergocalciferol [Vitamin D2 (1250 Mcg = 97256 Iu)] 1,250 mcg PO TRENT Discharge Medication List Acetaminophen Tab [Tylenol] 1,000 mg PO Q6HR PRN #30 tablet 08/08/23 [Rx] Omeprazole [PriLOSEC] 40 mg PO DAILY #30 cap 08/08/23 [Rx] Ondansetron Odt [Zofran Odt] 4 mg PO Q8HR PRN #9 tab 08/08/23 [Rx] Simethicone 40 mg/0.6 ml Drops [Mylicon Drops] 40 mg PO PCHS PRN #30 ml 08/08/23 [Rx] bisacodyL [Dulcolax] 5 mg PO DAILY PRN #10 tab 08/08/23 [Rx] Follow up Appointment(s)/Referral(s): [place], [place] [NON-STAFF] - 08/10/23 9:00 am Patient Instructions/Handouts: Nutrition after Bariatric Surgery (DC), Laparoscopic Sleeve Gastrectomy (DC) Activity/Diet/Wound Care/Special Instructions: Liquid diet only for 2 weeks No lifting over 4 pounds in 4 weeks May Shower. No soaking in bath tubs for 2 weeds Please notify your surgeon if you develop nausea and vomiting including new onset of abdominal pain. Continue to use incentive spirometry to prevent pneumonias. Please continue to ambulate at home to prevent blood clots in legs. Follow-up at the bariatric center. May shower. Dressings to be discontinued by surgeon in the office. Drink 64 oz of fluid daily. Start protein shakes on . Notify bariatric center for temp over 101.0, increased pain, drainage from incisions. No straws or carbonated beverages. Liquid diet only. Sugar content should be less than 6 g to avoid dumping syndrome. Take MOM for constipation. CRUSH, OPEN, OR CUT TABLETS LARGER THAN A SIZE OF A TIC TAC Discharge Disposition: HOME SELF-CARE
[2023-08-08 15:39] VITALS: BP 134/78; PULSE 51; RESP 17
== END 2023-08-08 15:47 | disposition home or self-care (01) | DRG 621 ==
LOC: 2ORMAIN 11:39 → 4SSUR 16:44
PROVIDERS: ADMIT Surgery Plastic and Reconstructive Surgery; ATTEND Surgery Plastic and Reconstructive Surgery
PROC: 8E0W4CZ Robotic Assisted Procedure of Trunk Region, Percutaneous Endoscopic Approach (ICD-10-PCS; principal; 2023-08-06 13:55)
PROC: 0DJ08ZZ Inspection of Upper Intestinal Tract, Via Natural or Artificial Opening Endoscopic (ICD-10-PCS; principal; 2023-08-06 13:55)
PROC: 0DB64Z3 Excision of Stomach, Percutaneous Endoscopic Approach, Vertical (ICD-10-PCS; principal; 2023-08-06 13:55)
DX: E66.01 Morbid (severe) obesity due to excess calories (principal); Z68.43 Body mass index [BMI] 50.0-59.9, adult; M17.0 Bilateral primary osteoarthritis of knee; M47.816 Spondylosis without myelopathy or radiculopathy, lumbar region; F41.1 Generalized anxiety disorder; F32.A Depression, unspecified; E55.9 Vitamin D deficiency, unspecified; K76.0 Fatty (change of) liver, not elsewhere classified; Z87.891 Personal history of nicotine dependence; Z71.3 Dietary counseling and surveillance; Z88.2 Allergy status to sulfonamides
CPT/HCPCS: 74240; 80051; 82310; 82565; 83735; 84100; 84520; 85025; 88307

== ENCOUNTER → 2023-08-10 | Outpatient (CLI) | payer BC ==
[2023-08-10 10:06] VITALS: BP 126/77; PULSE 71; TEMP 97.9; BMI 54.0
== END ==
LOC: BARWHC3 09:00
PROVIDERS: ATTEND Surgery Plastic and Reconstructive Surgery
DX: Z01.818 Encounter for other preprocedural examination (principal); E66.01 Morbid (severe) obesity due to excess calories; E55.9 Vitamin D deficiency, unspecified; Z68.44 Body mass index [BMI] 60.0-69.9, adult; Z71.3 Dietary counseling and surveillance; Z88.8 Allergy status to other drugs, medicaments and biological substances; Z87.891 Personal history of nicotine dependence; Z90.710 Acquired absence of both cervix and uterus; Z90.49 Acquired absence of other specified parts of digestive tract; Z98.890 Other specified postprocedural states; Z90.89 Acquired absence of other organs
CPT/HCPCS: 99211

== ENCOUNTER → 2023-09-05 | Outpatient (CLI) | payer BC ==
--- NOTE | 2023-09-05 15:05 | P.BASOAP ---
Subjective Progress Note Date: 09/05/23 She does not take pills. NO GERD. Food get stuck on occasion. Yesterday, smoothie strawberry real food and protein shakes. Protein water. Protein brownie and eggs. Good pressure.She lost 20 pounds in 1 month. Wants 200 pounds. Steps daily 3000 steps. Needs labs. 4 weeks [facility] Assessment/Plan Plan: Date: Initial Weight: 157.397 kg Initial BMI: Current Weight: Current BMI: Type of Surgery: Total Volume in Band: Previous Volume: Volume Removed: Volume Added: Band Size:
[2023-09-05 15:49] VITALS: BP 109/72; PULSE 67; RESP 16; TEMP 97.9; BMI 50.5
[2023-09-05 16:20] LABS: Prothrombin Time 10.8 sec (10.0-12.5)
[2023-09-05 16:27] LABS: Partial Thromboplastin Time 19.3 sec (22.0-30.0)
[2023-09-05 19:19] LABS: Prealbumin 20.7 mg/dL (18.0-42.0)
[2023-09-05 19:49] LABS: % Iron Saturation 13.33 (12.00-45.00); Chol/HDL Ratio 4.08 Ratio; Iron 44 UG/DL (50-170); LDL Cholesterol,Calculated 81.3 mg/dL (0.0-131.0); Phosphorus 3.7 mg/dL (2.4-5.1); Total Iron Binding Capacity 330 UG/DL (228-460)
[2023-09-05 19:56] LABS: HCT 40.8 % (37.2-46.3); HGB 13.3 g/dL (12.0-15.0); MCH 29.3 pg (27.0-32.0); MCHC 32.6 g/dL (32.0-37.0); MCV 89.9 FL (80.0-97.0); Mean Platelet Volume 13.3 FL (9.5-12.2); NRBC Per 100 WBC 0 X 10*3/uL (0.00-0.01); Platelet Count 115 X 10*3/uL (140-440); RBC 4.54 X 10*6/uL (4.10-5.20); RDW 12.8 % (11.5-14.5)
[2023-09-05 20:04] LABS: ALT 33 U/L (8-44); AST 33 U/L (13-35); Albumin 4.1 g/dL (3.8-4.9); Albumin/Globulin Ratio 1.58 Ratio (1.60-3.17); Alkaline Phosphatase 55 U/L (41-126); BUN/Creat Ratio 20.57 Ratio (12.00-20.00); Blood Urea Nitrogen 14.4 mg/dL (9.0-27.0); Calcium 9.6 mg/dL (8.7-10.3); Carbon Dioxide 23.8 mmol/L (21.6-31.8); Chloride 103 mmol/L (96-109); Globulin 2.6 g/dL (1.6-3.3); Glucose 86 mg/dL (70-110); Potassium 4.3 mmol/L (3.5-5.5); Sodium 140 mmol/L (135-145); Total Bilirubin 0.4 mg/dL (0.3-1.2); Total Protein 6.7 g/dL (6.2-8.2)
[2023-09-06 10:08] LABS: Zinc, Serum 64 ug/dL (60-130)
[2023-09-07 06:06] LABS: Vit B1(Thiamine) 62 ug/L (38-122)
[2023-09-07 07:39] LABS: Vitamin A 44 ug/dL (38-106)
[2023-09-10 07:22] LABS: Selenium 122 mcg/L (63-160)
== END | disposition home or self-care (01) ==
LOC: BARWHC3 13:27
PROVIDERS: ATTEND Surgery Plastic and Reconstructive Surgery
DX: E66.01 Morbid (severe) obesity due to excess calories (principal); K90.89 Other intestinal malabsorption; K50.90 Crohn's disease, unspecified, without complications; E89.1 Postprocedural hypoinsulinemia; N19 Unspecified kidney failure; E55.9 Vitamin D deficiency, unspecified; T56.894A Toxic effect of other metals, undetermined, initial encounter; D50.8 Other iron deficiency anemias; K74.1 Hepatic sclerosis; Z71.3 Dietary counseling and surveillance; Z87.891 Personal history of nicotine dependence; Z98.84 Bariatric surgery status; Z90.3 Acquired absence of stomach [part of]; Z88.8 Allergy status to other drugs, medicaments and biological substances; Z68.43 Body mass index [BMI] 50.0-59.9, adult
CPT/HCPCS: 80053; 80061; 82306; 82525; 82607; 82728; 82746; 83036; 83540; 83550; 83735; 83970; 84100; 84134; 84255; 84425; 84443; 84590; 84630; 85027; 85610; 85730; 97803; 99211

== ENCOUNTER → 2023-11-07 | Outpatient (CLI) | payer BC ==
[2023-11-07 16:49] VITALS: RESP 16; BMI 46.0
[2023-11-07 17:14] VITALS: BP 114/77; PULSE 72; TEMP 98.5
--- NOTE | 2023-11-07 17:37 | P.BASOAP ---
Subjective Progress Note Date: 11/07/23 No belly pain. No GERD. Bowels are working. Protein daily is 60 to 80 grams. FLuid 60 to 80 oz. Carbs daily ?. Calories 600 to 900. She is keeping a track of meals. She has lost 73 pounds in total. MVI is ashlee fusion. She is taking fiber gummy. She is doing well. Goal for weight loss is 200 pounds. Labs are awesome. Objective - Vital Signs Vital signs: Vital Signs Temp 98.5 F 11/07/23 16:46 Pulse 72 11/07/23 16:46 Resp 16 11/07/23 16:46 BP 114/77 11/07/23 16:46 Pulse Ox FiO2 Intake & Output 11/06/23 11/07/23 11/07/23 18:59 06:59 18:59 Weight 129.274 kg Assessment/Plan Plan: Date: 11/07/23 Initial Weight: 157.397 kg Initial BMI: 56.0 Current Weight: 129.274 kg Current BMI: 46.0 Type of Surgery: Total Volume in Band: Previous Volume: Volume Removed: Volume Added: Band Size:
== END ==
LOC: BARWHC3 16:15
PROVIDERS: ATTEND Surgery Plastic and Reconstructive Surgery
DX: E66.01 Morbid (severe) obesity due to excess calories (principal); Z71.3 Dietary counseling and surveillance; Z68.42 Body mass index [BMI] 45.0-49.9, adult; Z88.8 Allergy status to other drugs, medicaments and biological substances; Z87.891 Personal history of nicotine dependence; Z98.84 Bariatric surgery status; Z90.3 Acquired absence of stomach [part of]
CPT/HCPCS: 97803; 99211

== ENCOUNTER → 2023-11-12 | Outpatient (CLI) | payer BC ==
[2023-11-12 18:07] LABS: Partial Thromboplastin Time 25.3 sec (22.0-30.0); Prothrombin Time 10.7 sec (10.0-12.5)
[2023-11-13 02:31] LABS: HCT 39.5 % (37.2-46.3); HGB 12.9 g/dL (12.0-15.0); MCH 29.2 pg (27.0-32.0); MCHC 32.7 g/dL (32.0-37.0); MCV 89.4 FL (80.0-97.0); Mean Platelet Volume 12.1 FL (9.5-12.2); NRBC Per 100 WBC 0 X 10*3/uL (0.00-0.01); Platelet Count 251 X 10*3/uL (140-440); RBC 4.42 X 10*6/uL (4.10-5.20); RDW 12.7 % (11.5-14.5); WBC 10.48 X 10*3/uL (4.50-10.00)
[2023-11-13 04:54] LABS: % Iron Saturation 11.45 (12.00-45.00); ALT 14 U/L (8-44); AST 20 U/L (13-35); Albumin 4.1 g/dL (3.8-4.9); Albumin/Globulin Ratio 1.58 Ratio (1.60-3.17); Alkaline Phosphatase 66 U/L (41-126); BUN/Creat Ratio 23.71 Ratio (12.00-20.00); Blood Urea Nitrogen 16.6 mg/dL (9.0-27.0); Calcium 9.7 mg/dL (8.7-10.3); Carbon Dioxide 22.9 mmol/L (21.6-31.8); Chloride 100 mmol/L (96-109); Globulin 2.6 g/dL (1.6-3.3); Glucose 80 mg/dL (70-110); Iron 34 UG/DL (50-170); LDL Cholesterol,Calculated 69.2 mg/dL (0.0-131.0); Phosphorus 3.8 mg/dL (2.4-5.1); Potassium 4.3 mmol/L (3.5-5.5); Sodium 137 mmol/L (135-145); Total Bilirubin 0.3 mg/dL (0.3-1.2); Total Iron Binding Capacity 297 UG/DL (228-460); Total Protein 6.7 g/dL (6.2-8.2); VLDL Calculation 17.58 mg/dL (5.00-40.00)
[2023-11-13 05:19] LABS: Prealbumin 17.3 mg/dL (18.0-42.0)
[2023-11-13 13:00] LABS: Zinc, Serum 54 ug/dL (60-130)
[2023-11-14 06:55] LABS: Vitamin A 41 ug/dL (38-106)
== END | disposition home or self-care (01) ==
LOC: LABWHC1 16:16
PROVIDERS: ATTEND Surgery Plastic and Reconstructive Surgery
DX: E66.01 Morbid (severe) obesity due to excess calories (principal); E89.1 Postprocedural hypoinsulinemia; D50.8 Other iron deficiency anemias; K91.2 Postsurgical malabsorption, not elsewhere classified; E44.0 Moderate protein-calorie malnutrition; E46 Unspecified protein-calorie malnutrition; E55.9 Vitamin D deficiency, unspecified; K74.1 Hepatic sclerosis; N19 Unspecified kidney failure; T56.894A Toxic effect of other metals, undetermined, initial encounter; K50.90 Crohn's disease, unspecified, without complications
CPT/HCPCS: 36415; 80053; 80061; 82306; 82525; 82607; 82728; 82746; 83036; 83540; 83550; 83735; 83970; 84100; 84134; 84255; 84425; 84443; 84590; 84630; 85027; 85610; 85730

== ENCOUNTER → 2024-02-27 | Outpatient (CLI) | payer BC ==
[2024-02-27 16:10] VITALS: BP 118/79; PULSE 85; RESP 16; TEMP 97.9; BMI 40.5
--- NOTE | 2024-02-27 16:25 | P.BASOAP ---
Subjective Progress Note Date: 02/27/24 She lost 100 pounds. 70 gams protein. Steps daily is 5000 to 8000 daily. Recommend increase to 90 grams. Labs due. NO GERD. Recommend walking up stairs. Objective - Vital Signs Vital signs: Vital Signs Temp 97.9 F 02/27/24 16:01 Pulse 85 02/27/24 16:01 Resp 16 02/27/24 16:01 BP 118/79 02/27/24 16:01 Pulse Ox FiO2 Intake & Output 02/26/24 02/27/24 02/27/24 18:59 06:59 18:59 Weight 113.852 kg Assessment/Plan Plan: Date: 02/27/24 Initial Weight: 157.397 kg Initial BMI: 56.0 Current Weight: 113.852 kg Current BMI: 40.5 Type of Surgery: Total Volume in Band: Previous Volume: Volume Removed: Volume Added: Band Size:
== END ==
LOC: BARWHC3 15:30
PROVIDERS: ATTEND Surgery Plastic and Reconstructive Surgery
DX: E66.01 Morbid (severe) obesity due to excess calories (principal); Z88.8 Allergy status to other drugs, medicaments and biological substances; Z68.41 Body mass index [BMI] 40.0-44.9, adult; Z87.891 Personal history of nicotine dependence
CPT/HCPCS: 99211

== ENCOUNTER → 2024-02-27 | Outpatient (CLI) | payer BC ==
[2024-02-27 18:05] LABS: INR 1.1 (<1.2); Partial Thromboplastin Time 22.2 sec (22.0-30.0); Prothrombin Time 11.5 sec (10.0-12.5)
[2024-02-28 02:24] LABS: HCT 40.8 % (37.2-46.3); HGB 13.2 g/dL (12.0-15.0); MCH 29.2 pg (27.0-32.0); MCHC 32.4 g/dL (32.0-37.0); MCV 90.3 FL (80.0-97.0); Mean Platelet Volume 12.9 FL (9.5-12.2); NRBC Per 100 WBC 0 X 10*3/uL (0.00-0.01); Platelet Count 242 X 10*3/uL (140-440); RBC 4.52 X 10*6/uL (4.10-5.20); RDW 12.6 % (11.5-14.5); WBC 11.76 X 10*3/uL (4.50-10.00)
[2024-02-28 03:34] LABS: Prealbumin 19.5 mg/dL (18.0-42.0)
[2024-02-28 04:10] LABS: % Iron Saturation 7.86 (12.00-45.00); ALT 17 U/L (8-44); AST 18 U/L (13-35); Albumin 4.1 g/dL (3.8-4.9); Albumin/Globulin Ratio 1.58 Ratio (1.60-3.17); Alkaline Phosphatase 64 U/L (41-126); BUN/Creat Ratio 26.57 Ratio (12.00-20.00); Blood Urea Nitrogen 18.6 mg/dL (9.0-27.0); Calcium 9.3 mg/dL (8.7-10.3); Chloride 102 mmol/L (96-109); Chol/HDL Ratio 4.09 Ratio; Globulin 2.6 g/dL (1.6-3.3); Glucose 86 mg/dL (70-110); Iron 25 UG/DL (50-170); LDL Cholesterol,Calculated 82.8 mg/dL (0.0-131.0); Magnesium 1.9 mg/dL (1.5-2.4); Potassium 4.1 mmol/L (3.5-5.5); Sodium 137 mmol/L (135-145); Total Bilirubin 0.4 mg/dL (0.3-1.2); Total Iron Binding Capacity 318 UG/DL (228-460); Total Protein 6.7 g/dL (6.2-8.2)
[2024-02-29 11:37] LABS: Vitamin A 47 ug/dL (38-106)
[2024-02-29 11:44] LABS: Vit B1(Thiamine) 64 ug/L (38-122)
[2024-03-06 19:38] LABS: Selenium 102 mcg/L (63-160)
[2024-03-07 15:12] LABS: Zinc, Serum 47 ug/dL (60-130)
== END | disposition home or self-care (01) ==
LOC: LABPAT 16:30
PROVIDERS: ATTEND Surgery Plastic and Reconstructive Surgery
DX: E66.01 Morbid (severe) obesity due to excess calories (principal); E89.1 Postprocedural hypoinsulinemia; D50.8 Other iron deficiency anemias; K91.2 Postsurgical malabsorption, not elsewhere classified; E44.0 Moderate protein-calorie malnutrition; E45 Retarded development following protein-calorie malnutrition; E55.9 Vitamin D deficiency, unspecified; K74.1 Hepatic sclerosis; N19 Unspecified kidney failure; T56.894A Toxic effect of other metals, undetermined, initial encounter; K50.90 Crohn's disease, unspecified, without complications
CPT/HCPCS: 80053; 80061; 82306; 82525; 82607; 82728; 82746; 83036; 83540; 83550; 83735; 83970; 84100; 84134; 84255; 84425; 84443; 84590; 84630; 85027; 85610; 85730

== ENCOUNTER → 2024-05-07 | Outpatient (CLI) | payer BC ==
[2024-05-07 16:05] VITALS: BP 113/78; PULSE 58; RESP 16; TEMP 97.8; BMI 38.5
--- NOTE | 2024-05-07 16:24 | P.HPBAR ---
Bariatric H&P - History & Physicial H&P Date: 05/07/24 History & Physicial: Visit/CC: f/u Patient initial contact: Initial weight: 157.397 kg Initial weight in pounds: 347.00 Height: 5 ft 6 in Initial BMI: 56.0 Last weight: Current weight: 108.409 kg Current weight in pounds: 239.00 Current BMI: 38.5 [place] body weight (based on NIH guidelines): 58.967 kg Excess body weight loss: 49.7% The patient is a 38 year-old F who presents for Bariatric Assessment. Lost 120 pounds. NO abdominal pain. Has GERD with MVI iron, zinc. Protein 80 to 90 grams. Fluids 80 oz daily. Calories 800 - 100- kcal. She has done well. She walks the dog. She moves around and 6000 to 8000. She is losing hair. MVI over the counter. Biotin. Labs reviewed. Zinc, Iron, low. Has hair loss. Due for labs. Past Medical History Past Medical History: Liver Disease Additional Past Medical History / Comment(s): OBESITY, FATTY LIVER DISCOVERED 07/09/23 History of Any Multi-Drug Resistant Organisms: None Reported Past Surgical History: Bariatric Surgery, Section, Cholecystectomy, Hysterectomy, Tonsillectomy, Uterine Ablation Additional Past Surgical History / Comment(s): wisdom teeth extraction, laparoscopic exam- left ovary removed, and fallopian tube removed , D&C , C SECTION X3, cyst removed off right ovary , EGD, ATTEMPTED GASTRIC SLEEVE 07/08/23-HEPATOMEGALY DISCOVERED AND PROCEDURE WAS ABORTED. Gastric sleeve 08/06/23. Past Anesthesia/Blood Transfusion Reactions: Postoperative Nausea & Vomiting (PONV) Additional Past Anesthesia/Blood Transfusion Reaction / Comm: PONV- just with first , hard to wake up after left ovary removed Past Psychological History: Anxiety, Depression Additional Psychological History / Comment(s): UNDER CONTROL AT THIS TIME Smoking Status: Former smoker Past Alcohol Use History: Rare Additional Past Alcohol Use History / Comment(s): STARTED SMOKING AT AGE 19 QUIT SMOKING AUGUST 2017 QUIT ON AND OFF PRIOR smoked 1 PACK A WEEK Past Drug Use History: None Reported - Past Family History Mother Family Medical History: CVA/TIA, Hyperlipidemia, Hypertension Surgical - Exam Vital Signs Temp Pulse Resp BP 97.8 F 58 L 16 113/78 05/07/24 15:52 12/04/24 15:52 05/07/24 15:52 05/07/24 15:52 Bariatric Checklist Checklist: Plan: Checklist: EGD: 1. Hiatal hernia: 2. H. Pylori: HgbA1c: Vitamin D: Smoking: Former smoker Primary care physician referral: [facility] clearance: Cardiology clearance: Sleep study: Diet journal: VTE risk score: VTE risk level: Rehab needs at discharge:
== END ==
LOC: BARWHC3 15:47
PROVIDERS: ATTEND Surgery Plastic and Reconstructive Surgery
DX: E66.01 Morbid (severe) obesity due to excess calories (principal); Z71.3 Dietary counseling and surveillance; Z87.891 Personal history of nicotine dependence; Z98.84 Bariatric surgery status; Z88.8 Allergy status to other drugs, medicaments and biological substances; Z68.38 Body mass index [BMI] 38.0-38.9, adult
CPT/HCPCS: 97803; 99211

== ENCOUNTER → 2024-05-08 | Outpatient (CLI) | payer BC ==
[2024-05-08 08:42] LABS: Partial Thromboplastin Time 28.8 sec (22.0-30.0); Prothrombin Time 10.8 sec (10.0-12.5)
[2024-05-08 10:33] LABS: HCT 40.2 % (37.2-46.3); HGB 13.5 g/dL (12.0-15.0); MCH 30.1 pg (27.0-32.0); MCHC 33.6 g/dL (32.0-37.0); MCV 89.5 FL (80.0-97.0); Mean Platelet Volume 12.2 FL (9.5-12.2); NRBC Per 100 WBC 0 X 10*3/uL (0.00-0.01); Platelet Count 217 X 10*3/uL (140-440); RBC 4.49 X 10*6/uL (4.10-5.20); RDW 12.2 % (11.5-14.5); WBC 7.66 X 10*3/uL (4.50-10.00)
[2024-05-08 11:06] LABS: % Iron Saturation 31.65 (12.00-45.00); ALT 12 U/L (8-44); AST 19 U/L (13-35); Albumin 4.1 g/dL (3.8-4.9); Albumin/Globulin Ratio 1.46 Ratio (1.60-3.17); Alkaline Phosphatase 60 U/L (41-126); BUN/Creat Ratio 19.25 Ratio (12.00-20.00); Blood Urea Nitrogen 15.4 mg/dL (9.0-27.0); Calcium 9.3 mg/dL (8.7-10.3); Carbon Dioxide 23.9 mmol/L (21.6-31.8); Chloride 104 mmol/L (96-109); Chol/HDL Ratio 3.64 Ratio; Globulin 2.8 g/dL (1.6-3.3); Glucose 78 mg/dL (70-110); Iron 100 UG/DL (50-170); LDL Cholesterol,Calculated 77.5 mg/dL (0.0-131.0); Phosphorus 3.5 mg/dL (2.4-5.1); Potassium 4.4 mmol/L (3.5-5.5); Prealbumin 21.7 mg/dL (18.0-42.0); Sodium 139 mmol/L (135-145); Total Bilirubin 0.6 mg/dL (0.3-1.2); Total Iron Binding Capacity 316 UG/DL (228-460); Total Protein 6.9 g/dL (6.2-8.2); VLDL Calculation 16.76 mg/dL (5.00-40.00)
[2024-05-09 12:28] LABS: Zinc, Serum 80 ug/dL (60-130)
== END | disposition home or self-care (01) ==
LOC: LABWHC1 06:56
PROVIDERS: ATTEND Surgery Plastic and Reconstructive Surgery
DX: E66.01 Morbid (severe) obesity due to excess calories (principal); E55.9 Vitamin D deficiency, unspecified; D50.8 Other iron deficiency anemias; D50.9 Iron deficiency anemia, unspecified; E44.0 Moderate protein-calorie malnutrition; E44.1 Mild protein-calorie malnutrition; E45 Retarded development following protein-calorie malnutrition; K74.1 Hepatic sclerosis; E46 Unspecified protein-calorie malnutrition; E89.1 Postprocedural hypoinsulinemia; N19 Unspecified kidney failure; T56.894A Toxic effect of other metals, undetermined, initial encounter
CPT/HCPCS: 36415; 80053; 80061; 82306; 82525; 82607; 82728; 82746; 83036; 83540; 83550; 83735; 83970; 84100; 84134; 84255; 84425; 84443; 84590; 84630; 85027; 85610; 85730

== ENCOUNTER → 2024-08-13 | Outpatient (CLI) | payer BC ==
[2024-08-13 15:57] VITALS: BP 119/76; PULSE 72; RESP 16; TEMP 97.6; BMI 37.8
--- NOTE | 2024-08-13 16:15 | P.BASOAP ---
Subjective Progress Note Date: 08/13/24 No heartburn. She has 125 pounds. Looking to loose more. SHe is sad that she has not lost. Food journal. 30 to 40% of pie chart for protein. Get information of dinner. Water is 80 to 120 oz. She has rash under her boods, belly button, apron. Nystatin. She is looking into a breast reduction. Nystatin powder. Needs 10 pounds in October, 2 months. Objective - Vital Signs Vital signs: Vital Signs Temp 97.6 F 08/13/24 15:49 Pulse 72 08/13/24 15:49 Resp 16 08/13/24 15:49 BP 119/76 08/13/24 15:49 Pulse Ox FiO2 Intake & Output 08/12/24 08/13/24 08/13/24 18:59 06:59 18:59 Weight 106.141 kg Assessment/Plan Plan: Date: 08/13/24 Initial Weight: 157.397 kg Initial BMI: 56.0 Current Weight: 106.141 kg Current BMI: 37.8 Type of Surgery: Total Volume in Band: Previous Volume: Volume Removed: Volume Added: Band Size:
== END ==
LOC: BARWHC3 15:07
PROVIDERS: ATTEND Surgery Plastic and Reconstructive Surgery
DX: E66.01 Morbid (severe) obesity due to excess calories (principal); Z68.37 Body mass index [BMI] 37.0-37.9, adult; Z88.3 Allergy status to other anti-infective agents; Z87.891 Personal history of nicotine dependence
CPT/HCPCS: 97803; 99211

== ENCOUNTER → 2024-08-13 | Outpatient (CLI) | payer BC ==
[2024-08-13 16:30] LABS: Partial Thromboplastin Time 23.6 sec (22.0-30.0); Prothrombin Time 11.1 sec (10.0-12.5)
[2024-08-13 18:35] LABS: HCT 40.9 % (37.2-46.3); HGB 13.2 g/dL (12.0-15.0); MCH 30.1 pg (27.0-32.0); MCHC 32.3 g/dL (32.0-37.0); MCV 93.2 FL (80.0-97.0); Mean Platelet Volume 12.2 FL (9.5-12.2); NRBC Per 100 WBC 0 X 10*3/uL (0.00-0.01); Platelet Count 239 X 10*3/uL (140-440); RBC 4.39 X 10*6/uL (4.10-5.20); RDW 12.2 % (11.5-14.5); WBC 8.64 X 10*3/uL (4.50-10.00)
[2024-08-13 19:05] LABS: % Iron Saturation 15.34 (12.00-45.00); Albumin 4.1 g/dL (3.8-4.9); Albumin/Globulin Ratio 1.78 Ratio (1.60-3.17); Blood Urea Nitrogen 17.6 mg/dL (9.0-27.0); Calcium 9.3 mg/dL (8.7-10.3); Carbon Dioxide 23.8 mmol/L (21.6-31.8); Chloride 106 mmol/L (96-109); Chol/HDL Ratio 3.08 Ratio; Globulin 2.3 g/dL (1.6-3.3); Glucose 82 mg/dL (70-110); Iron 52 UG/DL (50-170); Magnesium 1.9 mg/dL (1.5-2.4); Phosphorus 4.3 mg/dL (2.4-5.1); Sodium 142 mmol/L (135-145); Total Bilirubin 0.4 mg/dL (0.3-1.2); Total Iron Binding Capacity 339 UG/DL (228-460); Total Protein 6.4 g/dL (6.2-8.2)
[2024-08-13 19:06] LABS: ALT 17 U/L (8-44); AST 24 U/L (13-35); Alkaline Phosphatase 56 U/L (41-126)
[2024-08-13 21:59] LABS: Prealbumin 23.5 mg/dL (18.0-42.0)
[2024-08-14 12:10] LABS: Zinc, Serum 69 ug/dL (60-130)
[2024-08-15 07:29] LABS: Vit B1(Thiamine) 93 ug/L (38-122)
== END | disposition home or self-care (01) ==
LOC: LABWHC1 14:42
PROVIDERS: ATTEND Surgery Plastic and Reconstructive Surgery
DX: E66.01 Morbid (severe) obesity due to excess calories (principal); E89.1 Postprocedural hypoinsulinemia; E44.0 Moderate protein-calorie malnutrition; E45 Retarded development following protein-calorie malnutrition; N19 Unspecified kidney failure; T56.894A Toxic effect of other metals, undetermined, initial encounter; K50.90 Crohn's disease, unspecified, without complications; K91.2 Postsurgical malabsorption, not elsewhere classified
CPT/HCPCS: 36415; 80053; 80061; 82306; 82525; 82607; 82728; 82746; 83036; 83540; 83550; 83735; 83970; 84100; 84134; 84255; 84425; 84443; 84590; 84630; 85027; 85610; 85730

== ENCOUNTER → 2024-11-26 | Outpatient (CLI) | payer BC ==
[2024-11-26 16:56] VITALS: BP 114/69; PULSE 56; RESP 16; TEMP 98; BMI 34.2
--- NOTE | 2024-11-26 17:48 | P.BASOAP ---
Subjective Progress Note Date: 11/26/24 Has panniculitis. Nystatin prescribed. Patient has lost 150 pounds. She is very active weekly. She exercises daily. She gets 8 hours of sleep. She drinks 168 fluid ounces of fluids. Protein intake is at least 200 220 g daily. She meal preps. She is seeking skin removal in the future. Recommend de rmatologist visit. All labs are within excellent levels. Will follow-up pending closer to weight loss goals of 200 pounds. With patient's current success will likely get down to 180 pounds or less. Objective - Vital Signs Vital signs: Vital Signs Temp 98.0 F 11/26/24 16:48 Pulse 56 L 11/26/24 16:48 Resp 16 11/26/24 16:48 BP 114/69 11/26/24 16:48 Pulse Ox FiO2 Intake & Output 11/25/24 11/26/24 11/26/24 18:59 06:59 18:59 Weight 96.162 kg Assessment/Plan Plan: Date: 11/26/24 Initial Weight: 157.397 kg Initial BMI: 56.0 Current Weight: 96.162 kg Current BMI: 34.2 Type of Surgery: Total Volume in Band: Previous Volume: Volume Removed: Volume Added: Band Size:
== END ==
LOC: BARWHC3 16:30
PROVIDERS: ATTEND Surgery Plastic and Reconstructive Surgery
DX: E66.01 Morbid (severe) obesity due to excess calories (principal); Z87.891 Personal history of nicotine dependence; Z88.3 Allergy status to other anti-infective agents; Z68.34 Body mass index [BMI] 34.0-34.9, adult
CPT/HCPCS: 99211